=== PATIENT | male | born 1975 | race Caucasian/White ===

== ENCOUNTER 2018-05-10 15:27 | Observation (INO) | payer SELFPAY ==
--- OUTSIDE RECORDS SUMMARY | 2018-05-10 15:40 | XMS REPORT ---
:1975 [facility] Address [address] [place] [address] Dr. Lopez [address] [place] [address] Care Team Providers Name Role Phone DR FRIEDA FUENTES Unavailable Unavailable Problems This patient has no known problems. Allergies, Adverse Reactions, Alerts This patient has no known allergies or adverse reactions. Medications This patient has no known medications. Results Test Description Test Time Test Comments Text Results Atomic Results Result Comments GLUCOMETER GLUCOSE- LAB USE ONLY 2017-04-22 16:00:00 Test Item Value Reference Range Comments GLUCOMETER (test code=GMG) 299 mg/dL 70-100 Meter ID: [id number]: [id number] ILANA UBAY-UBAY GLUCOMETER GLUCOSE- LAB USE [id number] 11:15:00 Test Item Value Reference Range Comments GLUCOMETER (test code=GMG) 323 mg/dL 70-100 CLEANED METERMeter ID: [id number]: [id number] RAGINI WEEKS BASIC METABOLIC [id number] 06:19:00 Test Item Value Reference Range Comments GLUCOSE (test code=06D) 268 mg/dL 75-100 SODIUM (test code=01A) 135 mmol/L 136-145 POTASSIUM (test code=01B) 4.4 mmol/L 3.6-5.1 CHLORIDE (test code=04A) 104 mmol/L 98-107 CO2 (test code=02A) 23 mmol/L 22-32 ANION GAP (test code=ANG) 12.4 mmol/L BUN (test code=05D) 8 mg/dL 7-18 CREATININE (test code=03E) 0.6 mg/dL 0.7-1.3 BUN/CREA (test code=BCR) 15 12-20 CALCIUM (test code=09D) 7.1 mg/dL 8.3-9.5 LIPID [id number] 06:04:00 Test Item Value Reference Range Comments CHOLESTROL (test code=44A) 306 mg/dL 140-200 TRIGLYCERI (test code=42B) 1904 mg/dL <=149 HDL (test code=83D) 31.0 mg/dL 40.0-60.0 LDL (test code=34B) 68 mg/dL <=99 CHL/HDL (test code=CHR) 9.9 0.0-3.4 CBC (INCLUDES AUTOMATED DIFFERENTIAL)2017-04-22 05:40:00 Test Item Value Reference Range Comments WBC (test code=WBC) 4.7 10\S\3/uL 4.5-11.0 RBC (test code=RBC) 4.32 10\S\6/uL 4.30-5.70 HGB (test code=HBG) 13.1 g/dL 14.0-18.0 HCT (test code=HCT) 37.8 % 35.0-46.0 MCV (test code=MCV) 87.5 fL 80.0-94.0 MCH (test code=MCH) 30.3 pg 27.0-31.0 MCHC (test code=MCHC) 34.7 g/dL 32.0-36.0 RDW (test code=RDW) 14.3 % 11.5-14.5 PLT (test code=PLT) 161 10\S\3/uL 130-400 MPV (test code=MPV) 9.8 fL 9.4-12.4 NEUTROP # (test code=NE#) 2.8 10\S\3/uL 2.0-8.0 LYMPH # (test code=LY#) 1.5 10\S\3/uL 1.2-4.0 MONOCYTE # (test code=MO#) 0.4 10\S\3/uL 0.0-1.1 EOSINOPH # (test code=EO#) 0.1 10\S\3/uL 0.0-0.7 BASOPHIL # (test code=BA#) 0.0 10\S\3/uL 0.0-0.3 IG # (test code=IG#) 0.01 10\S\3/uL 0.00-0.06 NRBC # (test code=NRBC#) 0.00 10\S\3/uL 0.00-0.01 NEUTROPH % (test code=NE%) 59.8 % 35.0-73.0 LYMPH % (test code=LY%) 30.7 % 20.0-55.0 MONO % (test code=MO%) 7.6 % 2.5-10.0 EOSINOPH % (test code=EO%) 1.3 % 0.0-5.0 BASOPHIL % (test code=BA%) 0.4 % 0.0-2.0 IG % (test code=IG%) 0.2 % 0.0-0.8 NRBC% (test code=NRBC%) 0.0 % 0.0-0.2 MANDIFF (test code=MDIFF) NO NO RBC MORPH (test code=RBCMOR) NORMAL GLUCOMETER GLUCOSE- LAB USE [id number] 20:37:00 Test Item Value Reference Range Comments GLUCOMETER (test code=GMG) 174 mg/dL 70-100 Meter ID: [id number]: [id number] BIENVENIDOLUIS DANIEL MCKENZIE GLUCOMETER GLUCOSE- LAB USE [id number] 16:56:00 Test Item Value Reference Range Comments GLUCOMETER (test code=GMG) 212 mg/dL 70-100 CLEANED METERMeter ID: [id number]: [id number] BRANDAN IVANA XR CHEST 1 VIEW [id number] 15:16:21Portable AP chest, 1 viewLocation Code: [id number] HISTORY: Respiratory distressCOMPARISON: NoneCOMMENT: The lungs are clear and well inflated. The costophrenic angles are sharp. Thecardiomediastinal silhouette is unremarkable. The bones are intact.IMPRESSION : No acute abnormalityCBC (INCLUDES AUTOMATED DIFFERENTIAL)2017-04-21 14:26:00 Test Item Value Reference Range Comments WBC (test code=WBC) 8.3 10\S\3/uL 4.5-11.0 RBC (test code=RBC) 4.49 10\S\6/uL 4.30-5.70 HGB (test code=HBG) 14.3 g/dL 14.0-18.0 HCT (test code=HCT) 38.8 % 35.0-46.0 MCV (test code=MCV) 86.4 fL 80.0-94.0 MCH (test code=MCH) 31.8 pg 27.0-31.0 MCHC (test code=MCHC) 36.9 g/dL 32.0-36.0 RDW (test code=RDW) 14.3 % 11.5-14.5 PLT (test code=PLT) 194 10\S\3/uL 130-400 MPV (test code=MPV) 10.2 fL 9.4-12.4 NEUTROP # (test code=NE#) 6.5 10\S\3/uL 2.0-8.0 LYMPH # (test code=LY#) 1.0 10\S\3/uL 1.2-4.0 MONOCYTE # (test code=MO#) 0.7 10\S\3/uL 0.0-1.1 EOSINOPH # (test code=EO#) 0.0 10\S\3/uL 0.0-0.7 BASOPHIL # (test code=BA#) 0.0 10\S\3/uL 0.0-0.3 IG # (test code=IG#) 0.02 10\S\3/uL 0.00-0.06 NRBC # (test code=NRBC#) 0.00 10\S\3/uL 0.00-0.01 NEUTROPH % (test code=NE%) 78.1 % 35.0-73.0 LYMPH % (test code=LY%) 12.2 % 20.0-55.0 MONO % (test code=MO%) 8.9 % 2.5-10.0 EOSINOPH % (test code=EO%) 0.4 % 0.0-5.0 BASOPHIL % (test code=BA%) 0.2 % 0.0-2.0 IG % (test code=IG%) 0.2 % 0.0-0.8 NRBC% (test code=NRBC%) 0.0 % 0.0-0.2 MANDIFF (test code=MDIFF) NO NO RBC MORPH (test code=RBCMOR) NORMAL
[2018-05-10 16:02] LABS: Absolute Lymphocytes (CBC) 1.7 K/uL (0.7-4.9); Absolute Monocytes 0.4 K/uL (0.1-1.3); Absolute Neutrophil 4.7 K/uL (1.8-8.0); Basophils % 0.5 % (0-1.3); Eosinophils % 1.6 % (0-4.4); Hematocrit 40.7 % (39.6-49.0); Lymphocytes % 24.5 % (15.3-44.8); MCH 31.8 pg (27.0-35.0); MCV 88.5 fL (80-100); MPV 7.9 fL (7.6-11.3); Monocytes % 5.3 % (3.3-12.3)
--- NOTE | 2018-05-10 16:17 | RAD REPORT ---
EXAM DESCRIPTION: RAD - Chest Single View - 05/10/2018 4:00 pm CLINICAL HISTORY: CHEST PAIN Chest pain. COMPARISON: Chest Single View dated 06/22/2017; Chest Single View dated 12/28/2016; Chest Pa And Lat ( 2 Views) dated 12/16/2016; Chest Single View dated 11/17/2016 FINDINGS: Portable technique limits examination quality. The lungs are grossly clear. The heart is normal in size. No displaced fractures. IMPRESSION: No acute intrathoracic process suspected.
[2018-05-10 16:18] LABS: Protime INR 0.92
[2018-05-10 16:24] LABS: ALT/SGPT 30 U/L (12-78); AST/SGOT 16 U/L (15-37); Alkaline Phosphatase 125 U/L (45-117); BUN Blood Urea Nitrogen 10 mg/dL (7-18); Bicarbonate 23 mmol/L (21-32); Bilirubin Direct < 0.1 mg/dL (0-0.2); Bilirubin Total 0.4 mg/dL (0.2-1.0); CKMB Creatine Kinase MB < 1.0 ng/mL (0.3-3.6); Creatine Phosphokinase 45 U/L (39-308); Glucose Level 368 mg/dL (74-106); Magnesium 1.8 mg/dL (1.8-2.4); NT PRO-BNP 89 pg/mL (<125); Potassium 3.9 mmol/L (3.5-5.1); Protein, Total 6.2 g/dL (6.4-8.2); Sodium Level 135 mmol/L (136-145)
[2018-05-10] MEDS ORDERED: MORPHINE 4 MG/ML SYR ONE (16:36)
[2018-05-10] MEDS ORDERED: ONDANSETRON 4 MG/2 ML VIAL ONE (16:37)
--- NOTE | 2018-05-10 16:56 | RAD REPORT ---
EXAM DESCRIPTION: CT - Abdomen Pelvis Wo Contrast - 05/10/2018 4:46 pm CLINICAL HISTORY: Abdominal pain. ABD PAIN COMPARISON: Abdomen Pelvis Wo Contrast dated 07/09/2017 TECHNIQUE: CT imaging of the abdomen and pelvis was performed without contrast. Solid organ, bowel a nd vascular assessment is limited due to lack of IV and oral contrast. All CT scans are performed using dose optimization technique as appropriate and may include automated exposure control or mA/KV adjustment according to patient size. FINDINGS: The lower lung heredia are clear.Cholecystectomy clips. The liver, spleen, pancreas, adrenal glands and right kidney are within normal limits for a limited n on-contrast examination.Punctate stone is present in the left kidney without hydronephrosis. No bowel obstruction, free air, free fluid or abscess. Sigmoid diverticulosis coli is present without diverticulitis. The appendix is normal. The osseous structures are within normal limits. IMPRESSION: Punctate stone mid left kidney without hydronephrosis. Sigmoid diverticulosis coli without diverticulitis. A limited non-contrast examination was performed as detailed.
[2018-05-10] MEDS ORDERED: HYDROMORPHONE HCL 1 MG/ML INJ ONE (17:35)
[2018-05-10] MEDS ORDERED: NA CHLORIDE 0.9% 100 ML IV ONE (17:35)
[2018-05-10 17:45] LABS: Amylase Level 19 U/L (25-115); Lipase 116 U/L (73-393)
[2018-05-10] MEDS ORDERED: IPRATROPIUM BROM 0.5MG/2.5ML NEB PRN (17:51)
[2018-05-10] MEDS ORDERED: ALBUTEROL 2.5 MG/3 ML NEB SOL NEB PRN (17:51)
[2018-05-10] MEDS ORDERED: GLUCAGON 1 MG/VIAL IM PRN (17:51)
[2018-05-10] MEDS ORDERED: D50W 25 GM/50 ML SYRINGE IV PRN (17:51)
[2018-05-10] MEDS ORDERED: ACETAMINOPHEN 500 MG TAB PO PRN (17:51)
[2018-05-10] MEDS ORDERED: ALPRAZOLAM 0.25 MG TABLET PO PRN (17:51)
[2018-05-10] MEDS ORDERED: TRAMADOL HCL 50 MG TAB PO PRN (17:51)
[2018-05-10] MEDS ORDERED: ONDANSETRON 4 MG/2 ML VIAL IV PRN (17:51)
--- NOTE | 2018-05-10 18:05 | P.HP ---
Certification for Inpatient Patient admitted to: Observation With expected LOS: <2 Midnights Patient will require the following post-hospital care: None Practitioner: I am a practitioner with admitting privileges, knowledge of patient current condition, hospital course, and medical plan of care. Services: Services provided to patient in accordance with Admission requirements found in Title 42 Section 412.3 of the Code of Federal Regulations Patient History Date of Service: 05/10/18 Primary Care Provider: Dr. Escobar Reason for admission: Chest pain History of Present Illness: 42-year-old male presented to emergency room with chest pain. Patient reports chest pain to the left side. He has been having chest pain off and on over the past week. Pain would radiate to the back to the scapular region. It was associated with some nausea and shortness of breath. Last year in June he had a heart catheterization showing normal coronaries. He subsequently was admitted around that same time for pancreatitis related to hypertriglyceridemia. Patient reports history of diabetes, hypertriglyceridemia , obstructive sleep apnea, tobacco abuse. He reports compliance with his medication. The ER patient was evaluated. Initial blood pressure 132/87. CBC unremarkable. Sodium 135, potassium 3.9, initial cardiac enzymes unremarkable. Glucose 368. AST and ALT within normal range. Amylase and lipase also within normal range. CT abdomen showed no pancreatitis. A punctate left renal stone was noted without any hydronephrosis. Chest x-ray unremarkable. Due to nature the symptoms the patient was admitted for observation. When I saw the patient ER, he appeared comfortable. Patient still smokes regularly. Patient reports compliance with Lantus, Crestor, fenofibrate and gemfibrozil. Allergies adhesive tape Allergy (Verified 07/10/17 06:08) Itching Iodinated Contrast- Oral and IV Dye [Iodinated Contrast Media - IV Dye] Allergy (Verified 07/10/17 06:08) Anaphylaxis Penicillins Allergy (Verified 07/10/17 06:08) Anaphylaxis venom-wasp [wasp venom] Allergy (Verified 07/10/17 06:08) Anaphylaxis ketorolac tromethamine [From Toradol] Adverse Reaction (Verified 07/10/17 06:08) Agitation tramadol Adverse Reaction (Verified 07/10/17 06:08) aggitation adhesive tape-kristi Allergy (Uncoded 08/25/17 16:46) Unknown Home medications list reviewed: Yes Home Medications: Insulin Aspart [Novolog*] See Protocol SQ ACHS 12/28/16 Insulin Glargine Human [Lantus*] 40 units SQ BID 12/28/16 Rosuvastatin [Crestor*] 40 mg PO DAILY 06/23/17 Gemfibrozil [Lopid*] 1,000 mg PO DAILY 07/10/17 - Past Medical/Surgical History Diabetic: Yes -: Obstructive sleep apnea -: Diabetes mellitus type 2 -: Chronic recurrent hypertriglyceridemia pancreatitis -: Obesity -: Nonobstructing renal calculus, left side -: Cholecystectomy Psychosocial/ Personal History: He is but has a girlfriend. Has 1 child. He reports working in the [employer] industry - Family History Mother -: Diabetes Father -: Diabetes Notes: pancreatitis - Social History Smoking Status: Heavy Tobacco smoker (>10 cigarettes/day) Counseled patient to stop smoking for: less than 10 minutes Smoking therapy provided: Yes Patient receptive to therapy: Yes Alcohol use: No CD- Drugs: No Caffeine use: Yes Place of Residence: Home Review of Systems General: As per HPI Eyes: Unremarkable ENT: Unremarkable Respiratory: Shortness of Breath, As per HPI Cardiovascular: Chest Pain, As per HPI Gastrointestinal: Nausea, As per HPI Genitourinary: Unremarkable Musculoskeletal: Back Pain, As per HPI Integumentary: Unremarkable Neurological: Unremarkable Lymphatics: Unremarkable Physical Examination - Physical Exam General: Alert, In no apparent distress, Oriented x3, Cooperative HEENT: Atraumatic, Normocephalic, PERRLA, Mucous membr. moist/pink Neck: Supple, No Thyromegaly Respiratory: Clear to auscultation bilaterally, Normal air movement Cardiovascular: Normal pulses, Regular rate/rhythm Gastrointestinal: Normal bowel sounds, Soft and benign, Non-distended, No ascites, No tenderness, No masses, No rebound, No guarding Musculoskeletal: No erythema, No tenderness, No warmth Integumentary: No tenderness/swelling, No erythema, No warmth, No cyanosis Neurological: Normal speech, Normal strength at 5/5 x4 extr, Normal tone, Normal affect - Studies Laboratory Data (last 24 hrs) 05/10/18 15:45: Amylase 19 L, Lipase 116 05/10/18 15:45: PT 10.9, INR 0.92, APTT 31.9 05/10/18 15:45: WBC 6.8, Hgb 14.6, Hct 40.7, Plt Count 186 05/10/18 15:45: Sodium 135 L, Potassium 3.9, BUN 10, Creatinine 0.70, Glucose 368 H, Magnesium 1.8, Total Bilirubin 0.4, AST 16, ALT 30, Alkaline Phosphatase 125 H Assessment and Plan - Problems (Diagnosis) (1) Chest pain Onset Date: 06/23/17 Current Visit: No Status: Acute Plan: Will continue monitor patient with cardiac enzymes. Cardiology consulted to further assess. Will check echocardiogram. Previous heart catheterization done last year in June of 2017 showed normal coronaries. Await further recommendations from cardiology. Anticipate discharge tomorrow. Qualifiers: Chest pain type: unspecified Qualified Code(s): R07.9 - Chest pain, unspecified (2) Hyperlipidemia Onset Date: 12/29/16 Current Visit: No Status: Chronic Plan: Patient with history of mixed hyperlipidemia including hypertriglyceridemia. Will continue with Crestor and fenofibrate. Will check fasting lipid panel. Qualifiers: Hyperlipidemia type: mixed hyperlipidemia (3) GERD (gastroesophageal reflux disease) Onset Date: 12/16/16 Current Visit: No Status: Chronic Plan: Will provide PPI. Qualifiers: (4) Diabetes mellitus Onset Date: 04/25/16 Current Visit: No Status: Chronic Plan: Will check A1c. Will provide sliding scale. Will also provide basal insulin. Qualifiers: Diabetes mellitus type: type 2 Diabetes mellitus fci insulin use: with fci use Diabetes mellitus complication status: with other specified complication Qualified Code(s): E11.69 - Type 2 diabetes mellitus with other specified complication; Z79.4 - [facility] (current) use of insulin (5) Obstructive sleep apnea Onset Date: 04/25/16 Current Visit: No Status: Chronic Plan: Patient will need to be further assessed as an outpatient. (6) Tobacco abuse Onset Date: 04/25/16 Current Visit: No Status: Chronic Plan: Will provide nicotine patch. Will check urine drug screen. Discharge Plan: Home Plan to discharge in: 24 Hours - Advance Directives Does patient have a Living Will: No Does patient have a Durable POA for Healthcare: No - Code Status/Comfort Care Code Status Assessed: Yes Time Spent Managing Pts Care (In Minutes): 55
--- NOTE | 2018-05-10 18:07 | EDPHYS ---
Physician Documentation [facility] Name: Nehemias Shearer Age: 42 yrs Sex: Male : 1975 Arrival Date: 05/10/2018 Time: 15:28 Bed 16 Private MD: Ned Escobar ED Physician Neville Han HPI: 05/10 18:48 This 42 yrs old Male presents to ER via Wheelchair with complaints of Chest kdr Pain. 18:48 The patient or guardian reports chest pain that is located primarily in the substernal kdr area, epigastric area, anterior chest wall, left. Onset: this morning. The pain radiates to the left scapula, The scapular pain has been ongoing for months but worse today with the Chest pain and now similar to when he had his prior angioplasty by Dr. coppola. Associated signs and symptoms: Pertinent positives: abdominal pain, diaphoresis, nausea, shortness of breath, Pertinent negatives: dizziness, headache, lower extremity pain, lower extremity swelling, lightheadedness, near syncope, palpitations, recent travel, syncope, vomiting. The chest pain is described as aching, burning, a heaviness, a pressure. Duration: The patient or guardian reports a single episode, that is still ongoing, and unchanged. Modifying factors: The symptoms are alleviated by nothing. the symptoms are aggravated by nothing. Severity of pain: At its worst the pain was moderate severe just prior to arrival, in the emergency department the pain is unchanged. The patient has experienced similar episodes in the past, several times. Historical: - Allergies: 15:34 adhesive tape-silicones; tw2 15:34 Iodinated Contrast Media - IV Dye; tw2 15:34 Ketorolac; tw2 15:34 tramadol; tw2 15:34 venom-wasp; tw2 15:34 PENICILLINS; tw2 - Home Meds: 15:34 Novolog 100 unit/mL Sub-Q soln sliding scale [Active]; Crestor Oral [Active]; Lantus tw2 100 unit/mL Sub-Q soln 40 units BID [Active]; 15:35 fenofibrate oral oral [Active]; sv - PMHx: 15:34 Atrial Fib; Depression; Diabetes - IDDM; High Cholesterol; Pancreatitis; tw2 - PSHx: 15:35 Cholecystectomy; Angioplasty; sv - Immunization history:: Adult Immunizations up to date. - Social history:: Smoking status: Patient uses tobacco products, smokes one pack cigarettes per day. - Ebola Screening: : Patient denies travel to an Ebola-affected area in the 21 days before illness onset. ROS: 18:48 Constitutional: Negative for fever, chills, and weight loss, Eyes: Negative for injury, kdr pain, redness, and discharge, ENT: Negative for injury, pain, and discharge, Neck: Negative for injury, pain, and swelling, Respiratory: Negative for shortness of breath, cough, wheezing, and pleuritic chest pain, Abdomen/GI: Negative for abdominal pain, nausea, vomiting, diarrhea, and constipation, Back: Negative for injury and pain, : Negative for injury, bleeding, discharge, and swelling, MS/Extremity: Negative for injury and deformity, Skin: Negative for injury, rash, and discoloration, Neuro: Negative for headache, weakness, numbness, tingling, and seizure activity. Psych: Negative for depression, anxiety, suicide ideation, homicidal ideation, and hallucinations, Allergy/Immunology: Negative for hives, rash, and allergies, Endocrine: Negative for neck swelling, polydipsia, polyuria, polyphagia, and marked weight changes, Hematologic/Lymphatic: Negative for swollen nodes, abnormal bleeding, and unusual bruising. 18:48 Cardiovascular: Positive for chest pain, Negative for edema, orthopnea, palpitations, paroxysmal nocturnal dyspnea. 18:48 Abdomen/GI: Positive for abdominal pain, nausea, Negative for constipation, abdominal cramps, abdominal distension, anorexia, dysphagia, hematemesis, black/tarry stool, rectal pain, rectal bleeding, bowel incontinence. Exam: 18:48 Constitutional: This is a well developed, well nourished patient who is awake, alert, kdr and in no acute distress. Head/Face: Normocephalic, atraumatic. Eyes: Pupils equal round and reactive to light, extra-ocular motions intact. Lids and lashes normal. Conjunctiva and sclera are non-icteric and not injected. Cornea within normal limits. Periorbital areas with no swelling, redness, or edema. Neck: Trachea midline, no thyromegaly or masses palpated, and no cervical lymphadenopathy. Supple, full range of motion without nuchal rigidity, or vertebral point tenderness. No Meningismus. Chest/axilla: Normal chest wall appearance and motion. Nontender with no deformity. No lesions are appreciated. Cardiovascular: Regular rate and rhythm with a normal S1 and S2. No gallops, murmurs, or rubs. Normal PMI, no JVD. No pulse deficits. Respiratory: Lungs have equal breath sounds bilaterally, clear to auscultation and percussion. No rales, rhonchi or wheezes noted. No increased work of breathing, no retractions or nasal flaring. Abdomen/GI: Soft, non-tender, with normal bowel sounds. No distension or tympany. No guarding or rebound. No evidence of tenderness throughout. Back: No spinal tenderness. No costovertebral tenderness. Full range of motion. Skin: Warm, dry with normal turgor. Normal color with no rashes, no lesions, and no evidence of cellulitis. MS/ Extremity: Pulses equal, no cyanosis. Neurovascular intact. Full, normal range of motion. Neuro: Awake and alert, GCS 15, oriented to person, place, time, and situation. Cranial nerves II-XII grossly intact. Motor strength 5/5 in all extremities. Sensory grossly intact. Cerebellar exam normal. Normal gait. Psych: Awake, alert, with orientation to person, place and time. Behavior, mood, and affect are within normal limits. Vital Signs: 15:35 Weight 97.52 kg; Height 6 ft. 0 in. (182.88 cm); Pain 6/10; sv 15:35 BP 135 / 85; Pulse 105; Resp 17; Temp 98.9(O); Pulse Ox 98% on R/A; tw2 15:57 BP 135 / 80; Pulse 98; Resp 17; Pulse Ox 96% ; tw2 16:11 BP 112 / 59; Pulse 103; Resp 19; Pulse Ox 96% on R/A; tw2 17:22 BP 133 / 85; Pulse 99; Resp 18; Pulse Ox 97% on R/A; kr2 19:00 BP 127 / 96; Pulse 89; Resp 16; Pulse Ox 96% on R/A; aa1 20:11 BP 129 / 93; Pulse 84; Resp 16; Pulse Ox 98% on R/A; aa1 15:35 Body Mass Index 29.16 (97.52 kg, 182.88 cm) sv MDM: 18:07 Patient medically screened. kdr 18:48 Data reviewed: vital signs, lab test result(s), EKG, radiologic studies. kdr 08 15:47 Order name: Basic Metabolic Panel; Complete Time: 16:32 kdr 08/ 15:47 Order name: CBC with Diff; Complete Time: 16:32 kdr 08 15:47 Order name: Ckmb; Complete Time: 16:32 kdr 08 15:47 Order name: CPK; Complete Time: 16:32 kdr 05/10 15:47 Order name: LFT's; Complete Time: 16:32 kdr 05/10 15:47 Order name: Magnesium; Complete Time: 16:32 kdr 05/10 15:47 Order name: NT PRO-BNP; Complete Time: 16:32 kdr 05/10 15:47 Order name: PT-INR; Complete Time: 16:32 kdr 05/10 15:47 Order name: Ptt, Activated; Complete Time: 16:32 kdr 05/10 15:47 Order name: Troponin (emerg Dept Use Only); Complete Time: 16:32 kdr 05/10 17:31 Order name: Lipase; Complete Time: 18:06 kdr 05/10 17:31 Order name: Amylase, Serum; Complete Time: 18:06 kdr 05/10 17:45 Order name: Lipid Profile EDMN 05/10 17:58 Order name: Urine Drug Screen EDMN 05/10 15:36 Order name: EKG; Complete Time: 15:36 sv 05/10 15:36 Order name: EKG - Nurse/Tech; Complete Time: 15:40 sv 05/10 15:47 Order name: XRAY Chest (1 view); Complete Time: 16:32 kdr 05/10 15:47 Order name: Cardiac monitoring; Complete Time: 15:55 kdr 05/10 15:47 Order name: IV Saline Lock; Complete Time: 15:55 kdr 05/10 15:47 Order name: Labs collected and sent; Complete Time: 15:55 kdr 05/10 16:35 Order name: CT Abd/Pelvis - Without Cont; Complete Time: 17:17 kdr 05/10 17:58 Order name: CONS Physician Consult EDMN 05/10 17:58 Order name: Echo with Doppler EDMN 05/10 17:58 Order name: CKMB Creatine Kinase MB EDMN 05/10 17:58 Order name: Creatine Phosphokinase EDMN 05/10 17:58 Order name: Troponin I EDMN 05/10 20:30 Order name: Urine Dipstick--Ancillary (enter results) 2 05/10 15:47 Order name: O2 Per Protocol; Complete Time: 15:55 kdr 05/10 15:47 Order name: O2 Sat Monitoring; Complete Time: 15:56 kdr Administered Medications: 16:37 Drug: morphine 4 mg Route: IVP; Site: left forearm; kr2 17:00 Follow up: Response: No adverse reaction; Pain is decreased kr2 16:37 Drug: Zofran 4 mg Route: IVP; Site: left forearm; kr2 18:00 Follow up: Response: No adverse reaction kr2 17:36 Drug: Dilaudid 1 mg Route: IVP; Site: left forearm; kr2 19:15 Follow up: Response: No adverse reaction; Pain is decreased aa1 Disposition: 05/10/18 18:07 Hospitalization ordered by Rangel Cadena for Observation. Preliminary diagnosis is Chest pain, unspecified. - Bed requested for Telemetry/MedSurg (observation). - Status is Observation. aa1 - Condition is Fair. - Problem is an acute exacerbation. - Symptoms have improved. UTI on Admission? No Signatures: Dispatcher [employer] [facility] Orin Leblanc RN RN sv Caremn Gilbert RN RN aa1 Neville Han MD MD kdr Yomaira Carmona RN RN tw2 Maureen Haque RN RN kr2 Lynda Neely Corrections: (The following items were deleted from the chart) 18:56 18:07 Hospitalization Ordered by Rangel Cadena DO for Observation. Preliminary eb diagnosis is Chest pain, unspecified. Bed requested for Telemetry/MedSurg (observation). Status is Observation. Condition is Fair. Problem is an acute exacerbation. Symptoms have improved. UTI on Admission? No. kdr 20:31 18:56 05/10/2018 18:07 Hospitalization Ordered by Rangel Cadena DO for Observation. aa1 Preliminary diagnosis is Chest pain, unspecified. Bed requested for Telemetry/MedSurg (observation). Status is Observation. Condition is Fair. Problem is an acute exacerbation. Symptoms have improved. UTI on Admission? No. eb
--- NOTE | 2018-05-10 18:07 | ER ---
Nurse's Notes [facility] Name: Nehemias Shearer Age: 42 yrs Sex: Male : 1975 Arrival Date: 05/10/2018 Time: 15:28 Bed 16 Private MD: Ned Escobar Diagnosis: Chest pain, unspecified Presentation: 05/10 15:31 Presenting complaint: Patient states: left shoulder pain that started 2 days ago and sv pain has progressed to his left chest wall that is stabbing. c/o SOB and dizziness. Transition of care: patient was not received from another setting of care. Onset of symptoms was May 08, 2018. Care prior to arrival: None. 15:31 Method Of Arrival: Wheelchair sv 15:31 Acuity: GERALD 3 sv 15:34 Transition of care: patient was not received from another setting of care. Onset of tw2 symptoms was May 10, 2018. Risk Assessment: Do you want to hurt yourself or someone else? Patient reports no desire to harm self or others. Initial Sepsis Screen: Does the patient meet any 2 criteria? No. Patient's initial sepsis screen is negative. Does the patient have a suspected source of infection? No. Patient's initial sepsis screen is negative. Care prior to arrival: None. 15:34 Acuity: GERALD 3 tw2 15:34 Method Of Arrival: Wheelchair tw2 Triage Assessment: 15:39 General: Appears in no apparent distress. Pain: Complains of pain in chest. tw2 Historical: - Allergies: 15:34 adhesive tape-silicones; tw2 15:34 Iodinated Contrast Media - IV Dye; tw2 15:34 Ketorolac; tw2 15:34 tramadol; tw2 15:34 venom-wasp; tw2 15:34 PENICILLINS; tw2 - Home Meds: 15:34 Novolog 100 unit/mL Sub-Q soln sliding scale [Active]; Crestor Oral [Active]; Lantus tw2 100 unit/mL Sub-Q soln 40 units BID [Active]; 15:35 fenofibrate oral oral [Active]; sv - PMHx: 15:34 Atrial Fib; Depression; Diabetes - IDDM; High Cholesterol; Pancreatitis; tw2 - PSHx: 15:35 Cholecystectomy; Angioplasty; sv - Immunization history:: Adult Immunizations up to date. - Social history:: Smoking status: Patient uses tobacco products, smokes one pack cigarettes per day. - Ebola Screening: : Patient denies travel to an Ebola-affected area in the 21 days before illness onset. Screenin:32 Abuse screen: Denies threats or abuse. Nutritional screening: No deficits noted. tw2 Tuberculosis screening: No symptoms or risk factors identified. Fall Risk None identified. Assessment: 15:37 General: Appears in no apparent distress. Behavior is anxious. Neuro: Level of tw2 Consciousness is awake, alert, obeys commands, Oriented to person, place, time, situation. Cardiovascular: Reports chest pain, Heart tones S1 S2 Patient's skin is warm and dry. Rhythm is sinus tachycardia. Respiratory: Airway is patent Respiratory effort is even, unlabored, Respiratory pattern is regular, symmetrical, Breath sounds are clear bilaterally. GI: No signs and/or symptoms were reported involving the gastrointestinal system. Abdomen is round non-distended, Bowel sounds present X 4 quads. : No signs and/or symptoms were reported regarding the genitourinary system. EENT: No signs and/or symptoms were reported regarding the EENT system. Derm: No signs and/or symptoms reported regarding the dermatologic system. Skin is intact, is healthy with good turgor, Skin is dry, Skin temperature is warm. Musculoskeletal: Circulation, motion, and sensation intact. Range of motion: intact in all extremities. 15:39 Pain: Complains of pain in chest Pain radiates to left arm Pain began 2-3 days ago. tw2 16:11 Reassessment: Patient appears in no apparent distress at this time. No changes from tw2 previously documented assessment. Patient and/or family updated on plan of care and expected duration. Pain level reassessed. Patient is alert, oriented x 3, equal unlabored respirations, skin warm/dry/pink. 17:21 Reassessment: Patient appears in no apparent distress at this time. Patient and/or kr2 family updated on plan of care and expected duration. Pain level reassessed. Patient is alert, oriented x 3, equal unlabored respirations, skin warm/dry/pink. Patient states symptoms have improved. 20:10 Reassessment: Patient appears in no apparent distress at this time. Patient is alert, aa1 oriented x 3, equal unlabored respirations, skin warm/dry/pink. Report given to Phuong, RN on 2nd floor. Vital Signs: 15:35 Weight 97.52 kg; Height 6 ft. 0 in. (182.88 cm); Pain 6/10; sv 15:35 BP 135 / 85; Pulse 105; Resp 17; Temp 98.9(O); Pulse Ox 98% on R/A; tw2 15:57 BP 135 / 80; Pulse 98; Resp 17; Pulse Ox 96% ; tw2 16:11 BP 112 / 59; Pulse 103; Resp 19; Pulse Ox 96% on R/A; tw2 17:22 BP 133 / 85; Pulse 99; Resp 18; Pulse Ox 97% on R/A; kr2 19:00 BP 127 / 96; Pulse 89; Resp 16; Pulse Ox 96% on R/A; aa1 20:11 BP 129 / 93; Pulse 84; Resp 16; Pulse Ox 98% on R/A; aa1 15:35 Body Mass Index 29.16 (97.52 kg, 182.88 cm) sv ED Course: 15:28 Patient arrived in ED. es 15:29 Ned Escobar MD is Private Physician. es 15:31 Yomaira Carmona, CATRACHO is Primary Nurse. tw2 15:31 Placed in gown. Bed in low position. cardiac monitor on. Pulse ox on. NIBP on. tw2 15:31 Patient placed in an exam room, on a stretcher. sv 15:32 Arm band placed on. tw2 15:34 Triage completed. sv 15:35 Patient maintains SpO2 saturation greater than 95% on room air. tw2 15:43 EKG done, by technical support associate. reviewed by Gadiel Irene MD. sm3 15:45 Initial lab(s) drawn, by sd, held in ED. Inserted saline lock: 20 gauge in left mh5 antecubital area, using aseptic technique. Blood collected. 15:46 Neville Han MD is Attending Physician. kdr 15:55 sent to lab. 5 15:55 NT PRO-BNP Sent. 5 15:55 PT-INR Sent. 5 15:55 Ptt, Activated Sent. 5 15:55 Troponin (emerg Dept Use Only) Sent. 5 15:56 Magnesium Sent. 5 15:56 LFT's Sent. 5 15:56 CPK Sent. 5 15:56 Ckmb Sent. 5 15:56 CBC with Diff Sent. 5 15:56 Basic Metabolic Panel Sent. 5 15:59 X-ray completed. Portable x-ray completed in exam room. Patient tolerated procedure ml well. 16:00 XRAY Chest (1 view) In Process Unspecified. EDMS 16:24 Report given to CATRACHO Reddy. tw2 16:[address] jj2 16:46 CT Abd/Pelvis - Without Cont In Process Unspecified. EDMS 18:06 Rangel Cadena DO is Hospitalizing Provider. kdr 20:23 Urine collected: clean catch specimen, serenity colored. aa1 20:28 No provider procedures requiring assistance completed. Patient admitted, IV remains in aa1 place. Administered Medications: 16:37 Drug: morphine 4 mg Route: IVP; Site: left forearm; kr2 17:00 Follow up: Response: No adverse reaction; Pain is decreased kr2 16:37 Drug: Zofran 4 mg Route: IVP; Site: left forearm; kr2 18:00 Follow up: Response: No adverse reaction kr2 17:36 Drug: Dilaudid 1 mg Route: IVP; Site: left forearm; kr2 19:15 Follow up: Response: No adverse reaction; Pain is decreased aa1 Outcome: 18:07 Decision to Hospitalize by Provider. kdr 20:28 Admitted to Tele accompanied by tech, via wheelchair, room 212, with chart, Report aa1 called to CATRACHO Baca 20:28 Condition: stable 20:28 Discharge instructions given to patient, Instructed on the need for admit, Demonstrated understanding of instructions. 20:31 Patient left the ED. aa1 Signatures: Dispatcher [employer] Orin Carranza, Carmen Smith RN, RN RN aa1 Neville Han MD MD kdr Salyer, Edna es Jaramillo, Justin jj2 Madison Wylie Tara, RN RN 2 Sue Smyth [facility] Maureen Haque RN RN 2 Henna Moe 3
[2018-05-10] MEDS: ENOXAPARIN 40 MG/0.4 ML SQ SCH (19:00)
[2018-05-10] MEDS: NICOTINE 21 MG/PAT TD SCH (19:00)
[2018-05-10 20:35] LABS: Urine Blood NEGATIVE (NEG); Urine Glucose 2+ (NEG); Urine Protein NEGATIVE (NEG); Urine pH 6.5 (5.0-7.0)
[2018-05-10 20:45] LABS: Barbiturates NEGATIVE (NEGATIVE); Benzodiazepines NEGATIVE (NEGATIVE); Cocaine NEGATIVE (NEGATIVE); METHAMPHETAM NEGATIVE (NEGATIVE); Methadone NEGATIVE (NEGATIVE); Opiates POSITIVE (NEGATIVE); Phencyclidine NEGATIVE (NEGATIVE); THC Cannibis NEGATIVE (NEGATIVE)
[2018-05-10] MEDS ORDERED: ROSUVASTATIN 10 MG TAB PO SCH (21:00)
[2018-05-10] MEDS: INSULIN -REGULAR HUMAN 50 UNIT/0.5 ML ML SQ SCH (21:00)
[2018-05-10] MEDS: NA CHLORIDE 0.9% 1,000 ML IV SCH (21:17)
[2018-05-10] MEDS: HYDROCODONE/APAP 7.5/325 MG TAB PO PRN (21:18)
[2018-05-10 22:22] VITALS: BMI 29.2
[2018-05-10 22:32] LABS: CKMB Creatine Kinase MB < 1.0 ng/mL (0.3-3.6); Creatine Phosphokinase 44 U/L (39-308)
[2018-05-11] MEDS: HYDROCODONE/APAP 7.5/325 MG TAB PO PRN ×2 (04:34→14:43)
[2018-05-11 04:58] VITALS: O2SAT 99
[2018-05-11] MEDS: NA CHLORIDE 0.9% 1,000 ML IV SCH (05:49)
[2018-05-11 05:58] LABS: Absolute Lymphocytes (CBC) 1.5 K/uL (0.7-4.9); Absolute Monocytes 0.4 K/uL (0.1-1.3); Absolute Neutrophil 4.2 K/uL (1.8-8.0); Basophils % 0.3 % (0-1.3); Eosinophils % 1.9 % (0-4.4); Hematocrit 41.1 % (39.6-49.0); Lymphocytes % 23.7 % (15.3-44.8); MCH 31.6 pg (27.0-35.0); MCV 88.7 fL (80-100); MPV 7.8 fL (7.6-11.3); Monocytes % 6.7 % (3.3-12.3); RBC Red Blood Cell Count 4.63 M/uL (4.33-5.43)
[2018-05-11 06:49] LABS: ALT/SGPT 30 U/L (12-78); AST/SGOT 22 U/L (15-37); Albumin 2.7 g/dL (3.4-5.0); Alkaline Phosphatase 106 U/L (45-117); BUN Blood Urea Nitrogen 9 mg/dL (7-18); Bicarbonate 27 mmol/L (21-32); Bilirubin Total 0.4 mg/dL (0.2-1.0); CKMB Creatine Kinase MB < 1.0 ng/mL (0.3-3.6); Glucose Level 221 mg/dL (74-106); HDL Cholesterol 24 mg/dL (40-60); LDL Cholesterol, Calculated ND (<130); Magnesium 1.7 mg/dL (1.8-2.4); Protein, Total 5.8 g/dL (6.4-8.2); Sodium Level 138 mmol/L (136-145)
--- NOTE | 2018-05-11 06:49 | EKG ---
Test Date: 2018-05-10 Test Time: 15:36:14 Specialty Department Supervisor: JOHN MEASUREMENT RESULTS: Intervals: Rate: 102 PA: 134 QRSD: 96 QT: 348 QTc: 453 [place]: P: 50 PA: 134 QRS: 47 T: 58 INTERPRETIVE STATEMENTS: Sinus tachycardia Otherwise normal ECG Compared to ECG 06/22/2017 22:07:45 Sinus rhythm no longer present Atrial premature complex(es) no longer present Incomplete right bundle-branch block no longer present Electronically Signed On 05-11-18 06:48:16 CDT by Dayday Erazo
[2018-05-11 07:02] LABS: LDL, Direct 61 mg/dL (100-129)
[2018-05-11] MEDS ORDERED: PANTOPRAZOLE 40MG TABLET PO SCH (07:30)
[2018-05-11] MEDS: INSULIN -REGULAR HUMAN 50 UNIT/0.5 ML ML SQ SCH ×2 (07:30→11:30)
[2018-05-11] MEDS ORDERED: INSULIN DETEMIR 100 UNIT/1 ML INSULIN SQ SCH (08:00)
[2018-05-11] MEDS ORDERED: SODIUM CHLORIDE 0.9% 10ML INJ IV PRN (08:05)
[2018-05-11] MEDS ORDERED: MORPHINE 2 MG/ML SYR IV PRN (08:06)
[2018-05-11 08:30] LABS: Amylase Level 30 U/L (25-115); Lipase 258 U/L (73-393)
[2018-05-11] MEDS: ENOXAPARIN 40 MG/0.4 ML SQ SCH (09:00)
[2018-05-11] MEDS ORDERED: MAGNESIUM SULFATE 1 gm IVPB 1 GM/100 ML BAG IV ONE (09:00)
[2018-05-11] MEDS: NICOTINE 21 MG/PAT TD SCH (09:00)
[2018-05-11] MEDS ORDERED: FENOFIBRATE 160 MG TAB PO SCH (09:00)
[2018-05-11] MEDS ORDERED: GEMFIBROZIL 600 MG TAB PO SCH (09:00)
[2018-05-11] MEDS ORDERED: PANTOPRAZOLE 40 MG INJ IVP SCH (09:00)
--- NOTE | 2018-05-11 09:49 | P.DS ---
Admission Date: 05/10/18 Discharge Date: 05/11/18 Primary Care Provider: Dr. Escobar Disposition: ROUTINE DISCHARGE Discharge Condition: GOOD Reason for Admission: Chest pain Consultations: Cardiology-Dr. Erazo Procedures: CT scan: FINDINGS: The lower lung heredia are clear.Cholecystectomy clips. The liver, spleen, pancreas, adrenal glands and right kidney are within normal limits for a limited non-contrast examination. Punctate stone is present in the left kidney without hydronephrosis. No bowel obstruction, free air, free fluid or abscess. Sigmoid diverticulosis coli is present without diverticulitis. The appendix is normal. The osseous structures are within normal limits. IMPRESSION: Punctate stone mid left kidney without hydronephrosis. Sigmoid diverticulosis coli without diverticulitis. Echocardiogram: Ejection fraction 70%. Otherwise unremarkable. Cardiac stress test: COMPARISON: None. TECHNIQUE: The patient was administered approximately 10mCi of Tc 99m Sestamibi prior to resting SPECT imaging of the heart. The patient was then administered approximately 30 mCi of Tc 99m Sestamibi following exercise or pharmacologic stress. Multiplanar SPECT images were reviewed. FINDINGS: There is uniformity of radiotracer uptake involving the entire left ventricular myocardium. The left ventricular ejection fraction equals 52% IMPRESSION: Negative for a myocardial perfusion defect - Problems (1) Chest pain Onset Date: 06/23/17 Current Visit: No Status: Acute Qualifiers: Chest pain type: unspecified Qualified Code(s): R07.9 - Chest pain, unspecified (2) Hyperlipidemia Onset Date: 12/29/16 Current Visit: No Status: Chronic Qualifiers: Hyperlipidemia type: mixed hyperlipidemia Qualified Code(s): E78.2 - Mixed hyperlipidemia (3) GERD (gastroesophageal reflux disease) Onset Date: 12/16/16 Current Visit: No Status: Chronic Qualifiers: (4) Diabetes mellitus Onset Date: 04/25/16 Current Visit: No Status: Chronic Qualifiers: Diabetes mellitus type: type 2 Diabetes mellitus long lines operator insulin use: with long lines operator use Diabetes mellitus complication status: with other specified complication Qualified Code(s): E11.69 - Type 2 diabetes mellitus with other specified complication; Z79.4 - tank terminal gauger (current) use of insulin (5) Obstructive sleep apnea Onset Date: 04/25/16 Current Visit: No Status: Chronic (6) Tobacco abuse Onset Date: 04/25/16 Current Visit: No Status: Chronic (7) Renal calculus Current Visit: Yes Status: Chronic (8) Hypertriglyceridemia Onset Date: 11/18/16 Current Visit: No Status: Chronic (9) Flank pain Current Visit: Yes Status: Acute (10) Hypertension Current Visit: Yes Status: Chronic Qualifiers: Hypertension type: essential hypertension Qualified Code(s): I10 - Essential (primary) hypertension Brief History of Present Illness: 42-year-old male presented to emergency room with chest pain. Patient reports chest pain to the left side. He has been having chest pain off and on over the past week. Pain would radiate to the back to the scapular region. It was associated with some nausea and shortness of breath. Last year in June he had a heart catheterization showing normal coronaries. He subsequently was admitted around that same time for pancreatitis related to hypertriglyceridemia. Patient reports history of diabetes, hypertriglyceridemia , obstructive sleep apnea, tobacco abuse. He reports compliance with his medication. The ER patient was evaluated. Initial blood pressure 132/87. CBC unremarkable. Sodium 135, potassium 3.9, initial cardiac enzymes unremarkable. Glucose 368. AST and ALT within normal range. Amylase and lipase also within normal range. CT abdomen showed no pancreatitis. A punctate left renal stone was noted without any hydronephrosis. Chest x-ray unremarkable. Due to nature the symptoms the patient was admitted for observation. When I saw the patient ER, he appeared comfortable. Patient still smokes regularly. Patient reports compliance with Lantus, Crestor, fenofibrate and gemfibrozil. Hospital Course: During the course of his stay patient was evaluated for his chest pain recommended echocardiogram and cardiac stress test. Echo showed normal ejection fraction of 70%. Cardiac stress test showed no stress-induced ischemia. At discharge patient will continue with aspirin 81 mg daily. Patient also reported some left upper abdominal flank pain. CT scan showed no pancreatitis. Punctate left renal stone without hydronephrosis noted. This may be the source of his pain. Recommendation to increase fluid intake. Patient may benefit with urology evaluation as an outpatient. Patient has hypertriglyceridemia. Triglycerides were elevated at 1600. Patient has been seen in the past for pancreatitis secondary to hypertriglyceridemia. In the past triglycerides have been as high as 0704-1693. No pancreatitis is noted at this time. This was confirmed with CT scan and pancreatic levels. I did discuss treatment options with the patient along with Cardiology. At discharge, I will recommend the patient continue with Crestor 40 mg daily, fenofibrate 160 mg daily. Cardiology recommended Lovaza 2 gm 1 pill twice daily. Dietary changes will need to be enforced as an outpatient. Patient may have underlying GERD. At discharge patient will continue with Protonix 40 mg 1 pill daily. Patient may benefit with GI evaluation as an outpatient to further address. The patient has diabetes. Patient will continue with his insulin regimen of Lantus 40 units subcu twice daily. Patient also takes NovoLog sliding scale. Recommendation is to maintain blood sugars less 140 fasting and less than 200 after meals. Further adjustment can be done by his PCP. Recommendation to maintain A1c less than 7.0. This can be monitored by his PCP. The patient had slight elevation in his blood pressure. Patient likely has underlying hypertension. Because of his diabetes I will recommend to start lisinopril 2.5 mg daily. Recommendation is to maintain blood pressures less 150 /80. Further adjustment can be done by his PCP. He is to hold his blood pressure medication if blood pressure systolic less than 120. Tobacco cessation addressed in detail. This will need to be enforced as an outpatient. Vital Signs/Physical Exam: Temp Pulse Resp BP Pulse Ox 98.5 F 76 16 139/88 97 05/11/18 08:00 05/11/18 08:00 05/11/18 08:00 05/11/18 08:00 05/11/18 08:00 General: Alert, In no apparent distress, Oriented x3, Cooperative HEENT: Atraumatic Neck: Supple Respiratory: Clear to auscultation bilaterally, Normal air movement Cardiovascular: Normal pulses, Regular rate/rhythm Gastrointestinal: Normal bowel sounds, Soft and benign, Non-distended, No tenderness, No masses, No rebound, No guarding Musculoskeletal: No erythema, No tenderness, No warmth Integumentary: No tenderness/swelling, No erythema, No warmth, No cyanosis Neurological: Normal speech, Normal strength at 5/5 x4 extr, Normal tone, Normal affect Laboratory Data at Discharge: WBC 6.3 K/uL (4.3-10.9) 05/11/18 05:39 Hgb 14.6 g/dL (13.6-17.9) 05/11/18 05:39 Hct 41.1 % (39.6-49.0) 05/11/18 05:39 Plt Count 167 K/uL (152-406) 05/11/18 05:39 PT 10.9 SECONDS (9.5-12.5) 05/10/18 15:45 INR 0.92 05/10/18 15:45 APTT 31.9 SECONDS (24.3-36.9) 05/10/18 15:45 Sodium 138 mmol/L (136-145) 05/11/18 05:39 Potassium 4.0 mmol/L (3.5-5.1) 05/11/18 05:39 BUN 9 mg/dL (7-18) 05/11/18 05:39 Creatinine 0.60 mg/dL (0.55-1.3) 05/11/18 05:39 Glucose 221 mg/dL (74-106) H 05/11/18 05:39 Magnesium 1.7 mg/dL (1.8-2.4) L 05/11/18 05:39 Total Bilirubin 0.4 mg/dL (0.2-1.0) 05/11/18 05:39 AST 22 U/L (15-37) 05/11/18 05:39 ALT 30 U/L (12-78) 05/11/18 05:39 Alkaline Phosphatase 106 U/L (45-117) 05/11/18 05:39 Troponin I < 0.02 ng/mL (0.0-0.045) 05/11/18 05:39 Triglycerides 1611 mg/dL (<150) H 05/11/18 05:39 Cholesterol 257 mg/dL (<200) H 05/11/18 05:39 LDL Cholesterol Direct 61 mg/dL (100-129) L 05/11/18 05:39 HDL Cholesterol 24 mg/dL (40-60) L 05/11/18 05:39 Cholesterol/HDL Ratio 10.71 05/11/18 05:39 Amylase 30 U/L (25-115) 05/11/18 05:39 Lipase 258 U/L (73-393) 05/11/18 05:39 Home Medications: Insulin Aspart [Novolog*] See Protocol SQ ACHS 12/28/16 Insulin Glargine Human [Lantus*] 40 units SQ BID 12/28/16 Rosuvastatin [Crestor*] 40 mg PO DAILY 06/23/17 Fenofibrate [Tricor*] 160 mg PO DAILY 05/10/18 Docosahexanoic AC/Epa [Fish Oil 1,000 MG*] 2,000 mg PO BID #120 cap 05/11/18 Lisinopril [Prinivil*] 2.5 mg PO DAILY #30 tab 05/11/18 Pantoprazole [Protonix Tab] 40 mg PO DAILY #30 tab 05/11/18 New Medications: Docosahexanoic AC/Epa [Fish Oil 1,000 MG*] 2,000 mg PO BID #120 cap Lisinopril [Prinivil*] 2.5 mg PO DAILY #30 tab Pantoprazole [Protonix Tab] 40 mg PO DAILY #30 tab Patient Discharge Instructions: 1. Recommendation is for the patient follow up with PCP in 1 week to follow up this hospitalization. 2. Patient presented with chest pain. Patient seen and evaluated by Cardiology. Echo showed normal ejection fraction. Cardiac stress test showed no stress-induced ischemia. At discharge patient will continue with aspirin 81 mg daily. 3. Patient also reported some left upper abdominal flank pain. CT scan showed no pancreatitis. Punctate left renal stone without hydronephrosis noted. This may be the source of his pain. Recommendation to increase fluid intake. Patient may benefit with urology evaluation as an outpatient. 4. Patient has hypertriglyceridemia. Triglycerides were elevated at 1600. Patient has been seen in the past for pancreatitis secondary to hypertriglyceridemia. In the past triglycerides have been as high as 5305-0826. No pancreatitis is noted at this time. This was confirmed with CT scan and pancreatic levels. I did discuss treatment options with the patient along with Cardiology. At discharge, I will recommend the patient continue with Crestor 40 mg daily, fenofibrate 160 mg daily. Cardiology recommended Lovaza 2 gm 1 pill twice daily. Dietary changes will need to be enforced as an outpatient. 5. Patient may have underlying GERD. At discharge patient will continue with Protonix 40 mg 1 pill daily. Patient may benefit with GI evaluation as an outpatient to further address. 6. The patient has diabetes. Patient will continue with his insulin regimen of Lantus 40 units subcu twice daily. Patient also takes NovoLog sliding scale. Recommendation is to maintain blood sugars less 140 fasting and less than 200 after meals. Further adjustment can be done by his PCP. Recommendation to maintain A1c less than 7.0. This can be monitored by his PCP. 7. The patient had slight elevation in his blood pressure. Patient likely has underlying hypertension. Because of his diabetes I will recommend to start lisinopril 2.5 mg daily. Recommendation is to maintain blood pressures less 150/80. Further adjustment can be done by his PCP. He is to hold his blood pressure medication if blood pressure systolic less than 120. 8. Tobacco cessation addressed in detail. This will need to be enforced as an outpatient. Diet: ADA Activity: Ad anay Time spent managing pt's care (in minutes): 55
--- NOTE | 2018-05-11 10:15 | ECHO ---
HEIGHT: 6 ft 0 in WEIGHT: 215 lb 9.6 oz DATE OF STUDY: 05/11/[address]: Rangel Cadena DO 2-DIMENSIONAL: YES M.MODE: YES DOPPLER: YES COLOR FLOW: YES TDS: NO PORTABLE: NO DEFINITY: NO BUBBLE STUDY: NO DIAGNOSIS: CHEST PAIN/HISTORY OF CORONARY ARTERY DISEASE CARDIAC HISTORY: CATHERIZATION: YES SURGERY: NO PROSTHETIC VALVE: NO PACEMAKER: NO MEASUREMENTS (cm) DIASTOLIC (NORMALS) SYSTOLIC (NORMALS) IVSd 1.0 (0.6-1.2) LA Diam 3.4 (1.9-4.0) LVEF 70% LVIDd 4.6 (3.5-5.7) LVIDs 2.8 (2.0-3.5) %FS 39% LVPWd 1.1 (0.6-1.2) Ao Diam 3.3 (2.0-3.7) 2 DIMENSIONAL ASSESSMENT: RIGHT ATRIUM: NORMAL LEFT ATRIUM: NORMAL RIGHT VENTRICLE: NORMAL LEFT VENTRICLE: NORMAL TRICUSPID VALVE: NORMAL MITRAL VALVE: NORMAL PULMONIC VALVE: NORMAL AORTIC VALVE: NORMAL PERICARDIAL EFFUSION: NONE AORTIC ROOT: NORMAL LEFT VENTRICULAR WALL MOTION: NORMAL. DOPPLER/COLOR FLOW: NORMAL. COMMENTS: NORMAL 2D ECHO WITH DOPPLER. TECHNOLOGIST: FRAN SOSA
[2018-05-11 12:18] VITALS: BP 131/88; TEMP 97.5
--- NOTE | 2018-05-11 12:18 | CON ---
Chief Complaint: Chest pain. History Of Present Illness: Mr. Shearer started having pain in the left shoulder 2 days ago when he started having pain in the lower part of his chest, it is mostly resolved. It is constant. He has b een here in the hospital. Cardiac enzymes are all normal. In June 2017, a cardiac cath was kavya solis. The patient tells people he had an angioplasty without a stent that is not true. The patient had a cardiac cath that showed completely normal arteries and normal ejection fraction. Everything was normal in the cardiac cath. The patient has a problem that is very severe with high triglycerides. He does not take good care of himself. He continues to smoke. He does not eat carefully at all. Th e most recent triglycerides were 1611 and total cholesterol was 257, LDL was 61, and HDL was 24. Physical Examination: Vital Signs: Mr. Shearer is 6 feet tall, 215 pounds. General: Alert, oriented, pleasant, not in distress. Lungs: Clear. Heart: Normal. Abdomen: Soft. Extremities: Normal. Normal pulses. I would recommend he quit smoking, try very hard to follow a good diet. His outpatient medications o f gemfibrozil and Crestor and fenofibrate should probably be changed. He should not be on both gemfi brozil and fenofibrate, one or the other, and he should be on very highly concentrated EPA or other p reparations like this is known as Vascepa. That would probably get his triglycerides down into the n ormal range. He will have to follow an extremely strict diet, quit smoking to have a really good pro gnosis. Regarding his chest pain today, I will recommend we do a nuclear stress test. We will do a cardiac cath if it is abnormal. JOSE Voice ID: [id number] Report ID: [id number]
--- NOTE | 2018-05-11 13:14 | RAD REPORT ---
EXAM DESCRIPTION: NM - Rest Stress Cardiac Imaging - 05/11/2018 1:08 pm CLINICAL HISTORY: Chest pain. COMPARISON: None. TECHNIQUE: The patient was administered approximately 10mCi of Tc 99m Sestamibi prior to resting SPE CT imaging of the heart. The patient was then administered approximately 30 mCi of Tc 99m Sestamibi f ollowing exercise or pharmacologic stress. Multiplanar SPECT images were reviewed. FINDINGS: There is uniformity of radiotracer uptake involving the entire left ventricular myocardiu m. The left ventricular ejection fraction equals 52% IMPRESSION: Negative for a myocardial perfusion defect
--- NOTE | 2018-05-11 18:38 | TREADMILL ---
70% H.R.: 125 85% H.R.: 152 90% H.R.: 161 100% H.R.: 179 DX: CHEST PAIN Date of Study: 05/11/2018 Ht: 6 0 Wt: 215 lb 9.6 oz Consulting Physician: MARKY MEDICATIONS: TYLENOL, NORCO, PROVENTIE, DEXTROSE, LOVENOX, CRESTOR, ZOFRAN, TRICOR, FISH OIL, GLUCAGEN, NOVOLIN R, PRINIVIL, NICODERM, PROTONIX. HISTORY: 42 YEAR OLD MALE WITH CHEST PAIN. HISTORY: DIABETES MELLITUS, SMOKES ONE PACK PER DAY, HYPERLIPIDEMIA. PHYSICIAL EXAMINATION: RESTING B.P.: 133/86 RESTING H.R.: 91 RESTING EKG: NORMAL PROTOCOL: JESSE CARDIOLITE EXERCISE TIME: 10:30 MAXIMUM HEART RATE: 163 % OF PREDICTED B.P. AT PEAK STRESS: 193/97 H.R. AT 1 MINUTE POST EXERCISE: IMPRESSION: JESSE CARDIOLITE STOPPED DUE TO TARGET HEART RATE REACHED. CARDIOLITE INJECTED. COMPLAINTS OF CHEST PAIN 6/10 DURING EXERCISE. NO VENTRICULAR TACHYCARDIA. NO SUPRAVENTRICULAR TACHYCARDIA. NO ST CHANGES WITH STRESS TEST
[2018-05-11] MEDS ORDERED: DOCOSAHEXANOIC AC/EPA 1000 MG PO SCH (21:00)
[2018-05-12] MEDS ORDERED: LISINOPRIL 5 MG TAB PO SCH (09:00)
== END 2018-05-11 14:50 | disposition home or self-care (01) ==
LOC: ER 15:27 → ERHOLD 17:51 → 2ND 19:55
PROVIDERS: ADMIT Family Medicine; ATTEND Family Medicine
DX: R07.9 Chest pain, unspecified (principal); E78.2 Mixed hyperlipidemia; K21.9 Gastro-esophageal reflux disease without esophagitis; G47.33 Obstructive sleep apnea (adult) (pediatric); N20.0 Calculus of kidney; E78.1 Pure hyperglyceridemia; I10 Essential (primary) hypertension; F17.210 Nicotine dependence, cigarettes, uncomplicated; R10.9 Unspecified abdominal pain; E11.69 Type 2 diabetes mellitus with other specified complication; Z79.82 Long term (current) use of aspirin; Z79.4 Long term (current) use of insulin; Z88.6 Allergy status to analgesic agent; Z91.041 Radiographic dye allergy status; Z91.038 Other insect allergy status; Z88.5 Allergy status to narcotic agent; Z88.0 Allergy status to penicillin; Z91.048 Other nonmedicinal substance allergy status
CPT/HCPCS: 36415; 71045; 74176; 78452; 80048; 80053; 80061; 80076; 80307; 81003; 82150; 82550; 82553; 82962; 83690; 83735; 83880; 84484; 85025; 85610; 85730; 93005; 93017; 93306; 96374; 96375; 99285; A9500; C9113; G0378; J1170; J1650; J2270; J2405; J3475; J7030

== ENCOUNTER 2018-09-06 16:28 | Observation (INO) | payer SELFPAY ==
--- OUTSIDE RECORDS SUMMARY | 2018-09-06 16:31 | XMS REPORT ---
:1975 Author Organization [facility] Address [address] [place] [address] Dr. Lopez [address] [place] [address] Care Team Providers Name Role Phone DR [...] (test code=GMG) 299 mg/dL 70-100 Meter ID: [id number]: [id number] ILANA UBAY-UBAY GLUCOMETER GLUCOSE- LAB USE [id number] 11:15:00 Test Item Value Reference Range Comments GLUCOMETER (test code=GMG) 323 mg/dL 70-100 CLEANED METERMeter ID: [id number]: [id number] RAGINI WEEKS BASIC METABOLIC [id number] 06:19:00 Test Item Value Reference Range Comments [...] CALCIUM (test code=09D) 7.1 mg/dL 8.3-9.5 LIPID [id number] 06:04:00 Test Item Value Reference Range Comments [...] (test code=RBCMOR) NORMAL GLUCOMETER GLUCOSE- LAB USE [id number] 20:37:00 Test Item Value Reference Range Comments GLUCOMETER (test code=GMG) 174 mg/dL 70-100 Meter ID: [id number]: [id number] BIENVENIDOLUIS DANIEL MCKENZIE GLUCOMETER GLUCOSE- LAB USE [id number] 16:56:00 Test Item Value Reference Range Comments GLUCOMETER (test code=GMG) 212 mg/dL 70-100 CLEANED METERMeter ID: [id number]: [id number] BRANDAN IVANA XR CHEST 1 VIEW [id number] 15:16:21Portable AP chest, 1 viewLocation Code: [id number] HISTORY: Respiratory distressCOMPARISON: NoneCOMMENT: The lungs are [...]
[2018-09-06] MEDS ORDERED: HYDROMORPHONE HCL 1 MG/ML INJ ONE (18:20)
[2018-09-06] MEDS ORDERED: NA CHLORIDE 0.9% 2,000 ML ONE (18:20)
[2018-09-06] MEDS ORDERED: ONDANSETRON 4 MG/2 ML VIAL ONE (18:20)
[2018-09-06] MEDS ORDERED: FAMOTIDINE 20 MG/2 ML VIAL IV ONE (18:20)
--- NOTE | 2018-09-06 18:41 | ER ---
Nurse's Notes [facility] Name: Nehemias Shearer Age: 43 yrs Sex: Male : 1975 Arrival Date: 09/06/2018 Time: 16:30 Bed 26 Private MD: Archie Gloria Diagnosis: Abdominal tenderness;Vomiting;Other chronic pancreatitis-hx of;Hyperlipidemia, unspecified-triglyceridemia Presentation: 09/06 16:35 Presenting complaint: Patient states: LUQ pain that began "earlier today". Pt reports ss it feels like he is having pancreatitis again. Transition of care: patient was not received from another setting of care. Onset of symptoms was September 06, 2018. Risk Assessment: Do you want to hurt yourself or someone else? Patient reports no desire to harm self or others. Initial Sepsis Screen: Does the patient meet any 2 criteria? No. Patient's initial sepsis screen is negative. Does the patient have a suspected source of infection? No. Patient's initial sepsis screen is negative. Care prior to arrival: None. 16:35 Method Of Arrival: Ambulatory ss 16:35 Acuity: GERALD 3 ss Historical: - Allergies: 16:37 venom-wasp; ss 16:37 tramadol; ss 16:37 PENICILLINS; ss 16:37 Ketorolac; ss 16:37 Iodinated Contrast Media - IV Dye; ss 16:37 adhesive tape-silicones; ss - Home Meds: 20:57 Crestor Oral [Active]; fenofibrate Oral [Active]; Lantus 100 unit/mL Sub-Q soln 40 mg2 units BID [Active]; Novolog 100 unit/mL Sub-Q soln sliding scale [Active]; - PMHx: 16:37 Atrial Fib; Diabetes - IDDM; High Cholesterol; Pancreatitis; Depression; ss - PSHx: 16:37 Cholecystectomy; Angioplasty; ss - Immunization history:: Adult Immunizations unknown. - Social history:: Smoking status: Patient uses tobacco products, smokes one pack cigarettes per day. - Ebola Screening: : Patient denies exposure to infectious person Patient denies travel to an Ebola-affected area in the 21 days before illness onset. Screenin:45 Abuse screen: Denies threats or abuse. Denies injuries from another. Nutritional aj screening: No deficits noted. Tuberculosis screening: No symptoms or risk factors identified. Fall Risk None identified. Assessment: 18:45 General: Appears in no apparent distress. comfortable, Behavior is calm, cooperative, aj appropriate for age. Pain: Complains of pain in right upper quadrant and left upper quadrant. Neuro: Level of Consciousness is awake, alert, obeys commands, Oriented to person, place, time, situation, Appropriate for age. Respiratory: Airway is patent Respiratory effort is even, unlabored, Respiratory pattern is regular, symmetrical. GI: Abdomen is non-distended, obese, Bowel sounds present X 4 quads. Abd is soft and non tender Reports upper abdominal pain, nausea. Derm: Skin is intact, is healthy with good turgor, Skin is pink, warm \\T\\ dry. normal. 20:54 Reassessment: Patient appears in no apparent distress at this time. Patient and/or mg2 family updated on plan of care and expected duration. Pain level reassessed. Patient is alert, oriented x 3, equal unlabored respirations, skin warm/dry/pink. CATRACHO Elena of 4th floor will call me back to receive the report as per CATRACHO Forrester. Vital Signs: 16:37 BP 147 / 104; Pulse 102; Resp 16; Temp 97.5(TE); Pulse Ox 99% on R/A; Weight 94.8 kg; ss Height 5 ft. 10 in. (177.80 cm); Pain 7/10; 20:24 BP 133 / 83; Pulse 87; Resp 18; Pulse Ox 100% on R/A; Pain 0/10; mg2 16:37 Body Mass Index 29.99 (94.80 kg, 177.80 cm) ED Course: 16:30 Patient arrived in ED. mr 16:30 Archie Gloria MD is Private Physician. mr 16:36 Triage completed. ss 16:37 Arm band placed on left wrist. ss 17:03 Conner Montague MD is Attending Physician. janet 18:38 Wan Miramontes MD is Hospitalizing Provider. janet 18:45 Lynette Boo, CATRACHO is Primary Nurse. aj 18:45 Patient has correct armband on for positive identification. aj 18:45 Inserted saline lock: 22 gauge in left antecubital area, using aseptic technique. Blood aj collected. By Catherine Comer. 18:59 XRAY Chest (1 view) In Process Unspecified. EDMS 20:55 No provider procedures requiring assistance completed. Patient admitted, IV remains in mg2 place. Administered Medications: 18:47 Drug: Zofran 4 mg Route: IVP; Site: left antecubital; aj 19:37 Follow up: Response: No adverse reaction; Marked relief of symptoms mg2 18:48 Drug: NS 0.9% 1000 ml Route: IV; Rate: 1 bolus; Site: left antecubital; aj 20:53 Follow up: Response: No adverse reaction; IV Status: Completed infusion mg2 18:48 Drug: NS 0.9% 1000 ml Route: IV; Rate: 1 bolus; Site: left antecubital; aj 20:53 Follow up: Response: No adverse reaction; IV Status: Completed infusion mg2 18:48 Drug: Pepcid 20 mg Route: IVP; Site: left antecubital; aj 19:37 Follow up: Response: No adverse reaction; Marked relief of symptoms mg2 18:48 Drug: Dilaudid 1 mg Route: IVP; Site: left antecubital; aj 19:37 Follow up: Response: No adverse reaction; Marked relief of symptoms mg2 Outcome: 18:40 Decision to Hospitalize by Provider. janet 21:16 Admitted to Tele accompanied by tech, via wheelchair, room 425, with chart, Report mg2 called to CATRACHO Elena 21:16 Condition: stable 21:16 Instructed on the need for admit, Demonstrated understanding of instructions. 21:39 Patient left the ED. mg2 Signatures: Dispatcher [employer] Lynette Whitlock, Conner Barker RN, MD MD cha Rivera, Mary mr Smirch, Shelby, RN RN ss Gardose, Michele, RN RN mg2
--- NOTE | 2018-09-06 18:41 | EDPHYS ---
Physician Documentation [facility] Name: Nehemias Shearer Age: 43 yrs Sex: Male : 1975 Arrival Date: 09/06/2018 Time: 16:30 Bed 26 Private MD: Archie Gloria ED Physician Conner Montague HPI: 09/06 17:49 This 43 yrs old Male presents to ER via Ambulatory with complaints of janet Abdominal Pain, Arm Pain. 17:49 The patient or guardian complains of decreased range of motion, pain, that is acute. janet Historical: - Allergies: 16:37 venom-wasp; ss 16:37 tramadol; ss 16:37 PENICILLINS; ss 16:37 Ketorolac; ss 16:37 Iodinated Contrast Media - IV Dye; ss 16:37 adhesive tape-silicones; ss - Home Meds: 20:57 Crestor Oral [Active]; fenofibrate Oral [Active]; Lantus 100 unit/mL Sub-Q soln 40 mg2 units BID [Active]; Novolog 100 unit/mL Sub-Q soln sliding scale [Active]; - PMHx: 16:37 Atrial Fib; Diabetes - IDDM; High Cholesterol; Pancreatitis; Depression; ss - PSHx: 16:37 Cholecystectomy; Angioplasty; ss - Immunization history:: Adult Immunizations unknown. - Social history:: Smoking status: Patient uses tobacco products, smokes one pack cigarettes per day. - Ebola Screening: : Patient denies exposure to infectious person Patient denies travel to an Ebola-affected area in the 21 days before illness onset. ROS: 17:50 Constitutional: Negative for fever, chills, and weight loss, Eyes: Negative for injury, janet pain, redness, and discharge, ENT: Negative for injury, pain, and discharge, Neck: Negative for injury, pain, and swelling, Cardiovascular: Negative for chest pain, palpitations, and edema, Respiratory: Negative for shortness of breath, cough, wheezing, and pleuritic chest pain, Back: Negative for injury and pain, : Negative for injury, bleeding, discharge, and swelling, MS/Extremity: Negative for injury and deformity, Skin: Negative for injury, rash, and discoloration, Neuro: Negative for headache, weakness, numbness, tingling, and seizure, Psych: Negative for depression, anxiety, suicide ideation, homicidal ideation, and hallucinations, Allergy/Immunology: Negative for hives, rash, and allergies, Endocrine: Negative for neck swelling, polydipsia, polyuria, polyphagia, and marked weight changes, Hematologic/Lymphatic: Negative for swollen nodes, abnormal bleeding, and unusual bruising. 17:50 Abdomen/GI: Positive for abdominal pain, nausea and vomiting, of the epigastric area, right upper quadrant and left upper quadrant. Exam: 17:50 Constitutional: This is a well developed, well nourished patient who is awake, alert, janet and in no acute distress. Head/Face: Normocephalic, atraumatic. Eyes: Pupils equal round and reactive to light, extra-ocular motions intact. Lids and lashes normal. Conjunctiva and sclera are non-icteric and not injected. Cornea within normal limits. Periorbital areas with no swelling, redness, or edema. ENT: Nares patent. No nasal discharge, no septal abnormalities noted. Tympanic membranes are normal and external auditory canals are clear. Oropharynx with no redness, swelling, or masses, exudates, or evidence of obstruction, uvula midline. Mucous membranes moist. Neck: Trachea midline, no thyromegaly or masses palpated, and no cervical lymphadenopathy. Supple, full range of motion without nuchal rigidity, or vertebral point tenderness. No Meningismus. Chest/axilla: Normal chest wall appearance and motion. Nontender with no deformity. No lesions are appreciated. Cardiovascular: Regular rate and rhythm with a normal S1 and S2. No gallops, murmurs, or rubs. Normal PMI, no JVD. No pulse deficits. Respiratory: Lungs have equal breath sounds bilaterally, clear to auscultation and percussion. No rales, rhonchi or wheezes noted. No increased work of breathing, no retractions or nasal flaring. Back: No spinal tenderness. No costovertebral tenderness. Full range of motion. Male : Normal genitalia with no discharge or lesions. Skin: Warm, dry with normal turgor. Normal color with no rashes, no lesions, and no evidence of cellulitis. MS/ Extremity: Pulses equal, no cyanosis. Neurovascular intact. Full, normal range of motion. Neuro: Awake and alert, GCS 15, oriented to person, place, time, and situation. Cranial nerves II-XII grossly intact. Motor strength 5/5 in all extremities. Sensory grossly intact. Cerebellar exam normal. Normal gait. Psych: Awake, alert, with orientation to person, place and time. Behavior, mood, and affect are within normal limits. 17:50 Abdomen/GI: Inspection: abdomen appears normal, Bowel sounds: normal, Palpation: mild abdominal tenderness, moderate abdominal tenderness, in the epigastric area, right upper quadrant and left upper quadrant. Vital Signs: 16:37 BP 147 / 104; Pulse 102; Resp 16; Temp 97.5(TE); Pulse Ox 99% on R/A; Weight 94.8 kg; ss Height 5 ft. 10 in. (177.80 cm); Pain 7/10; 20:24 BP 133 / 83; Pulse 87; Resp 18; Pulse Ox 100% on R/A; Pain 0/10; mg2 16:37 Body Mass Index 29.99 (94.80 kg, 177.80 cm) ss MDM: 17:03 Patient medically screened. [facility] 17:51 Data reviewed: vital signs, nurses notes, lab test result(s), EKG, radiologic studies, [facility] CT scan, plain films. 09/06 17:49 Order name: Basic Metabolic Panel; Complete Time: 19:26 [facility] 09/06 17:49 Order name: CBC with Diff; Complete Time: 19:26 [facility] 09/06 17:49 Order name: LFT's; Complete Time: 19:26 [facility] 09/06 17:49 Order name: Magnesium; Complete Time: 19:26 [facility] 09/06 17:49 Order name: NT PRO-BNP; Complete Time: 19:26 [facility] 09/06 17:49 Order name: PT-INR; Complete Time: 19:26 [facility] 09/06 17:49 Order name: Troponin (emerg Dept Use Only); Complete Time: 19:26 [facility] 09/06 17:49 Order name: Lipase; Complete Time: 19:26 [facility] 09/06 17:49 Order name: Urine Culture [facility] 09/06 19:34 Order name: CBC with Automated Diff EDMS 09/06 19:34 Order name: CBC with Automated Diff EDGA 09/06 19:34 Order name: Comprehensive Metabolic Panel EDGA 09/06 19:34 Order name: Comprehensive Metabolic Panel EDMS 09/06 19:44 Order name: Urine Dipstick--Ancillary (enter results) wa 09/06 17:49 Order name: XRAY Chest (1 view) [facility] 09/06 17:49 Order name: EKG; Complete Time: 17:51 [facility] 09/06 17:49 Order name: Cardiac monitoring; Complete Time: 19:38 [facility] 09/06 17:49 Order name: EKG - Nurse/Tech; Complete Time: 19:38 [facility] 09/06 17:49 Order name: IV Saline Lock; Complete Time: 19:38 [facility] 09/06 17:49 Order name: Labs collected and sent; Complete Time: 19:38 [facility] 09/06 17:49 Order name: O2 Per Protocol; Complete Time: 19:38 [facility] 09/06 17:49 Order name: CT Abd/Pelvis - Without Cont [facility] 09/06 19:34 Order name: CONS Pharmacy Consult [facility] 09/06 19:34 Order name: NPO [facility] 09/06 20:56 Order name: CT [facility] 09/06 17:49 Order name: O2 Sat Monitoring; Complete Time: 19:38 [facility] 09/06 17:49 Order name: Urine Dipstick-Ancillary (obtain specimen); Complete Time: 19:37 [facility] Administered Medications: 18:47 Drug: Zofran 4 mg Route: IVP; Site: left antecubital; aj 19:37 Follow up: Response: No adverse reaction; Marked relief of symptoms mg2 18:48 Drug: NS 0.9% 1000 ml Route: IV; Rate: 1 bolus; Site: left antecubital; aj 20:53 Follow up: Response: No adverse reaction; IV Status: Completed infusion mg2 18:48 Drug: NS 0.9% 1000 ml Route: IV; Rate: 1 bolus; Site: left antecubital; aj 20:53 Follow up: Response: No adverse reaction; IV Status: Completed infusion mg2 18:48 Drug: Pepcid 20 mg Route: IVP; Site: left antecubital; aj 19:37 Follow up: Response: No adverse reaction; Marked relief of symptoms mg2 18:48 Drug: Dilaudid 1 mg Route: IVP; Site: left antecubital; aj 19:37 Follow up: Response: No adverse reaction; Marked relief of symptoms mg2 Disposition: 09/06/18 18:40 Hospitalization ordered by Wan Miramontes for Observation. Preliminary diagnosis are Abdominal tenderness, Vomiting, Other chronic pancreatitis - hx of, Hyperlipidemia, unspecified - triglyceridemia. - Bed requested for Telemetry/MedSurg (observation). - Status is Observation. mg2 - Condition is Stable. - Problem is new. - Symptoms have improved. UTI on Admission? No Signatures: Dispatcher [employer] EDLynette Muñoz, RN RN Conner Bhatia MD MD cha Smirch, Shelby, RN RN ss Idania Berry RN RN cg Dalton Naranjo RN RN mg2 Corrections: (The following items were deleted from the chart) 19:27 18:40 Hospitalization Ordered by Wan Miramontes MD for Inpatient Admission. Preliminary janet diagnosis is Abdominal tenderness; Vomiting; Other chronic pancreatitis; Hyperlipidemia, unspecified - triglyceridemia. Bed requested for Telemetry/MedSurg (Inpatient). Status is Inpatient Admission. Condition is Stable. Problem is new. Symptoms have improved. UTI on Admission? No. janet 19:48 19:27 09/06/2018 18:40 Hospitalization Ordered by Wan Miramontes MD for Observation. cg Preliminary diagnosis is Abdominal tenderness; Vomiting; Other chronic pancreatitis - hx of; Hyperlipidemia, unspecified - triglyceridemia. Bed requested for Telemetry/MedSurg (observation). Status is Observation. Condition is Stable. Problem is new. Symptoms have improved. UTI on Admission? No. janet 21:39 19:48 09/06/2018 18:40 Hospitalization Ordered by Wan Miramontes MD for Observation. mg2 Preliminary diagnosis is Abdominal tenderness; Vomiting; Other chronic pancreatitis - hx of; Hyperlipidemia, unspecified - triglyceridemia. Bed requested for Telemetry/MedSurg (observation). Status is Observation. Condition is Stable. Problem is new. Symptoms have improved. UTI on Admission? No. cg
[2018-09-06 18:50] LABS: Absolute Lymphocytes (CBC) 1.7 K/uL (0.7-4.9); Absolute Monocytes 0.5 K/uL (0.1-1.3); Absolute Neutrophil 5.3 K/uL (1.8-8.0); Basophils % 0.5 % (0-1.3); Eosinophils % 1.6 % (0-4.4); Lymphocytes % 21.6 % (15.3-44.8); MCH 31.3 pg (27.0-35.0); MCV 88.5 fL (80-100); MPV 7.7 fL (7.6-11.3); RBC Red Blood Cell Count 5.31 M/uL (4.33-5.43)
[2018-09-06 19:09] LABS: ALT/SGPT 26 U/L (12-78); AST/SGOT 11 U/L (15-37); Albumin 3.5 g/dL (3.4-5.0); Alkaline Phosphatase 119 U/L (45-117); BUN Blood Urea Nitrogen 9 mg/dL (7-18); Bicarbonate 28 mmol/L (21-32); Bilirubin Direct < 0.1 mg/dL (0-0.2); Bilirubin Total 0.5 mg/dL (0.2-1.0); Glucose Level 222 mg/dL (74-106); Lipase 83 U/L (73-393); Magnesium 2.1 mg/dL (1.8-2.4); NT PRO-BNP 63 pg/mL (<125); Potassium 3.9 mmol/L (3.5-5.1); Sodium Level 140 mmol/L (136-145); Troponin (Emerg Dept Use Only) < 0.02 ng/mL (0.0-0.045)
--- NOTE | 2018-09-06 19:24 | RAD REPORT ---
EXAM DESCRIPTION: RAD - Chest Single View - 09/06/2018 6:59 pm CLINICAL HISTORY: ABDOMINAL DISTENTION Chest pain. COMPARISON: Chest Single View dated 05/10/2018; Chest Single View dated 06/22/2017; Chest Single View d ated 12/28/2016; Chest Pa And Lat (2 Views) dated 12/16/2016 FINDINGS: Portable technique limits examination quality. The lungs are grossly clear. The heart is normal in size. No displaced fractures. IMPRESSION: No acute intrathoracic process suspected.
[2018-09-06] MEDS ORDERED: ACETAMINOPHEN 500 MG TAB PO PRN (19:29)
[2018-09-06] MEDS ORDERED: ONDANSETRON 4 MG/2 ML VIAL IV PRN (19:29)
[2018-09-06] MEDS ORDERED: NA CHLORIDE 0.9% 1,000 ML IV SCH (20:00)
--- NOTE | 2018-09-06 20:55 | RAD REPORT ---
EXAM DESCRIPTION: CT - Abdomen Pelvis Wo Contrast - 09/06/2018 8:46 pm CLINICAL HISTORY: Abdominal pain. ABD PAIN COMPARISON: Abdomen Pelvis Wo Contrast dated 05/10/2018 TECHNIQUE: CT imaging of the abdomen and pelvis was performed without contrast. Solid organ and vasc ular assessment is limited due to lack of IV contrast. All CT scans are performed using dose optimization technique as appropriate and may include automated exposure control or mA/KV adjustment according to patient size. FINDINGS: The lower lung heredia are clear.Cholecystectomy clips. The liver, spleen, pancreas, adrenal glands and right kidney are within normal limits for a limited n on-contrast examination.Small calculus is present mid-pole left kidney. No bowel obstruction, free air, free fluid or abscess. Sigmoid diverticulosis is present without dive rticulitis. The appendix is normal. The osseous structures are within normal limits. IMPRESSION: Punctate left renal calculus without hydronephrosis. Sigmoid diverticulosis without diverticulitis. A limited non-contrast examination was performed as detailed.
[2018-09-06] MEDS: MORPHINE 4 MG/ML SYR IV PRN (21:38)
[2018-09-06] MEDS ORDERED: MORPHINE 4 MG/ML SYR ONE (21:43)
[2018-09-06 22:05] LABS: Urine Blood TRACE (NEG); Urine Glucose 2+ (NEG); Urine Protein NEGATIVE (NEG); Urine pH 7.5 (5.0-7.0)
[2018-09-06 22:18] VITALS: BMI 31.3
[2018-09-06 23:46] LABS: Urine Appearance CLEAR; Urine Bilirubin NEGATIVE (NEG); Urine Blood NEGATIVE (NEG); Urine Color YELLOW; Urine Glucose NEGATIVE (NEG); Urine Protein NEGATIVE (NEG); Urine Urobilinogen 0.2 mg/dL (0.2-1.0); Urine pH 5.5 (5.0-7.0)
[2018-09-06 23:49] LABS: Urine Microscopic Reflex NO UMIC
[2018-09-07] MEDS: NA CHLORIDE 0.9% 1,000 ML IV SCH ×5 (01:00→21:31)
[2018-09-07] MEDS: MORPHINE 4 MG/ML SYR IV PRN ×3 (02:19→11:19)
[2018-09-07 05:20] LABS: Absolute Monocytes 0.5 K/uL (0.1-1.3); Absolute Neutrophil 4.6 K/uL (1.8-8.0); Basophils % 0.5 % (0-1.3); Eosinophils % 2.4 % (0-4.4); Hematocrit 42.7 % (39.6-49.0); Lymphocytes % 27.1 % (15.3-44.8); MCV 89.8 fL (80-100); MPV 7.5 fL (7.6-11.3); Monocytes % 6.8 % (3.3-12.3); RBC Red Blood Cell Count 4.76 M/uL (4.33-5.43)
[2018-09-07 05:34] LABS: ALT/SGPT 25 U/L (12-78); AST/SGOT 13 U/L (15-37); Alkaline Phosphatase 100 U/L (45-117); BUN Blood Urea Nitrogen 11 mg/dL (7-18); Bicarbonate 26 mmol/L (21-32); Bilirubin Total 0.5 mg/dL (0.2-1.0); Glucose Level 148 mg/dL (74-106); HDL Cholesterol 24 mg/dL (40-60); LDL Cholesterol, Calculated ND (<130); Lipase 87 U/L (73-393); Potassium 3.9 mmol/L (3.5-5.1); Protein, Total 5.9 g/dL (6.4-8.2); Sodium Level 142 mmol/L (136-145)
[2018-09-07 05:57] LABS: LDL, Direct 65 mg/dL (100-129)
[2018-09-07] MEDS: GEMFIBROZIL 600 MG TAB PO SCH ×3 (06:00→21:31)
--- NOTE | 2018-09-07 07:06 | EKG ---
Test Date: 2018-09-06 Test Time: 18:44:49 [employer] Fitter: ALISHA MEASUREMENT RESULTS: Intervals: Rate: 91 VT: 138 QRSD: 102 QT: 366 QTc: 450 [place]: P: 24 VT: 138 QRS: -18 T: 48 INTERPRETIVE STATEMENTS: Normal sinus rhythm Incomplete right bundle branch block Borderline ECG Compared to ECG 05/10/2018 15:36:14 Incomplete right bundle-branch block now present Sinus tachycardia no longer present Electronically Signed On 09-07-18 07:05:22 POULTRY EVISCERATOR by Sebastian Milner
[2018-09-07] MEDS: DOCOSAHEXANOIC AC/EPA 1000 MG PO SCH ×2 (09:00→21:31)
[2018-09-07] MEDS: PANTOPRAZOLE 40MG TABLET PO SCH (09:00)
[2018-09-07] MEDS: ROSUVASTATIN 10 MG TAB PO SCH ×2 (09:00→17:42)
[2018-09-07] MEDS: INSULIN GLARGINE 100 UNITS/ML SQ SCH ×2 (09:00→21:40)
--- NOTE | 2018-09-07 13:18 | P.HP ---
Certification for Inpatient Patient admitted to: Observation With expected LOS: <2 Midnights Patient will require the following post-hospital care: None Practitioner: I am a practitioner with admitting privileges, knowledge of patient current condition, hospital course, and medical plan of care. Services: Services provided to patient in accordance with Admission requirements found in Title 42 Section 412.3 of the Code of Federal Regulations Patient History Date of Service: 09/06/18 Reason for admission: Chronic pancreatitis with hypertriglyceridemia History of Present Illness: Patient is a 43-year-old gentleman with a history of pancreatitis secondary to hypertriglyceridemia. Patient states he has not been taking his medications recently. His triglyceride levels have not been checked in a while. He started having epigastric tenderness so came into the ER. His pain was 10/10. It radiated to his back. He felt like it with pancreatitis pain. He came to the ER for evaluation. His CT of the abdomen and pelvis did not reveal any acute pancreatitis findings. Patient's labs also did not reveal elevated lipase level. We just need observation and will do so triglyceride levels and monitor him overnight. We will probably start him on a diet in the morning and if tolerates and labs look ok we will let him go home. Allergies adhesive tape Allergy (Verified 07/10/17 06:08) Itching Iodinated Contrast- Oral and IV Dye [Iodinated Contrast Media - IV Dye] Allergy (Verified 07/10/17 06:08) Anaphylaxis ketorolac tromethamine [From Toradol] Allergy (Verified 05/10/18 20:52) Shortness of breath Penicillins Allergy (Verified 07/10/17 06:08) Anaphylaxis venom-wasp [wasp venom] Allergy (Verified 07/10/17 06:08) Anaphylaxis adhesive tape-kristi Allergy (Uncoded 08/25/17 16:46) Unknown Home Medications: Insulin Aspart [Novolog*] See Protocol SQ ACHS 12/28/16 Fenofibrate [Tricor*] 160 mg PO DAILY 09/07/18 Gabapentin 100 mg PO TID 09/07/18 Hydrocodone 10/APAP 325 [[place] 10/325*] 10 mg PO PRN PRN 09/07/18 Insulin Glargine Human [Lantus*] 40 units SQ BID 09/07/18 Rosuvastatin [Crestor*] 40 mg PO DAILY 09/07/18 - Past Medical/Surgical History Diabetic: Yes -: Obstructive sleep apnea -: Diabetes mellitus type 2 -: Chronic recurrent hypertriglyceridemia pancreatitis -: Obesity -: Nonobstructing renal calculus, left side -: Cholecystectomy -: angioplasty 07/2017 Psychosocial/ Personal History: He is but has a girlfriend. Has 1 child. He reports working in the [employer] industry - Family History Mother Medical History: Diabetes Father Medical History: Diabetes Notes: pancreatitis - Social History Smoking Status: Current every day smoker Alcohol use: No CD- Drugs: No Caffeine use: Yes Place of Residence: Home Review of Systems 10-point ROS is otherwise unremarkable Physical Examination - Vital Signs Temperature: 97.6 F Blood Pressure: 132/90 Pulse: 81 Respirations: 18 Pulse Ox (%): 96 - Physical Exam General: Alert, In no apparent distress, Oriented x3 HEENT: Atraumatic, PERRLA, Mucous membr. moist/pink, EOMI, Sclerae nonicteric Neck: Supple, 2+ carotid pulse no bruit, No LAD, Without JVD or thyroid abnormality Respiratory: Clear to auscultation bilaterally, Normal air movement Cardiovascular: Regular rate/rhythm, Normal S1 S2, No murmurs Gastrointestinal: Normal bowel sounds, Soft and benign, Non-distended, No tenderness Musculoskeletal: No clubbing, No swelling, No tenderness Integumentary: No rashes Neurological: Normal gait, Normal speech, Normal strength at 5/5 x4 extr, Normal tone, Normal affect Lymphatics: No axilla or inguinal lymphadenopathy - Studies Laboratory Data (last 24 hrs) 09/06/18 18:37: PT 11.8, INR 1.00 09/06/18 18:37: WBC 7.7, Hgb 16.6, Hct 47.0, Plt Count 210 09/06/18 18:37: Sodium 140, Potassium 3.9, BUN 9, Creatinine 0.70, Glucose 222 H , Magnesium 2.1, Total Bilirubin 0.5, AST 11 L, ALT 26, Alkaline Phosphatase 119 H, Lipase 83 Assessment & Plan - Problems (Diagnosis) (1) Abdominal pain Current Visit: Yes Status: Acute (2) Acute pancreatitis Onset Date: 12/16/16 Current Visit: No Status: Acute Qualifiers: (3) Pancreatitis, recurrent Onset Date: 11/18/16 Current Visit: No Status: Acute (4) Vomiting Onset Date: 12/29/16 Current Visit: No Status: Acute (5) Diabetes mellitus Onset Date: 04/25/16 Current Visit: No Status: Chronic Qualifiers: (6) Hyperlipidemia Onset Date: 12/29/16 Current Visit: No Status: Chronic Qualifiers: (7) Hypertension Current Visit: No Status: Chronic Qualifiers: (8) Hypertriglyceridemia Onset Date: 11/18/16 Current Visit: No Status: Chronic (9) Obesity (BMI 30-39.9) Onset Date: 04/25/16 Current Visit: No Status: Chronic - Plan Plan: 1. IV fluids 2. Lipid profile 3. Pain control 4. NPO 5. If labs look okay to start diet in the morning 6. Observation for now pending labs in the morning 7. Discussed with patient importance of compliance with medication 8. GI DVT prophylaxis - Advance Directives Does patient have a Living Will: No Does patient have a Durable POA for Healthcare: No - Code Status/Comfort Care Code Status Assessed: Yes Code Status: Full Code Critical Care: No Time Spent Managing PTS Care (In Minutes): 50
[2018-09-07] MEDS ORDERED: MORPHINE 2 MG/ML SYR IV PRN (14:50)
[2018-09-07] MEDS ORDERED: TRAMADOL HCL 50 MG TAB PO PRN (17:24)
--- NOTE | 2018-09-07 17:28 | P.PN ---
Subjective Date of Service: 09/07/18 Chief Complaint: Chronic pancreatitis with hypertriglyceridemia Patient seen and examined at bedside with RN. Chart reviewed. Case discussed with patient at bedside. Currently patient is complaining of having some abdominal pain. Nausea and vomiting has resolved. Review of Systems 10-point ROS is otherwise unremarkable Physical Examination - Vital Signs Temperature: 97.6 F Blood Pressure: 132/90 Pulse: 81 Respirations: 18 Pulse Ox (%): 96 - Physical Exam General: Alert, In no apparent distress HEENT: Atraumatic, PERRLA, EOMI Neck: Supple, JVD not distended Respiratory: Clear to auscultation bilaterally, Normal air movement Cardiovascular: Regular rate/rhythm, Normal S1 S2 Gastrointestinal: Normal bowel sounds, No tenderness Musculoskeletal: No tenderness Integumentary: No rashes Neurological: Normal speech, Normal tone, Normal affect Lymphatics: No axilla or inguinal lymphadenopathy - Studies Laboratory Data (last 24 hrs) 09/06/18 18:37: PT 11.8, INR 1.00 09/06/18 18:37: WBC 7.7, Hgb 16.6, Hct 47.0, Plt Count 210 09/06/18 18:37: Sodium 140, Potassium 3.9, BUN 9, Creatinine 0.70, Glucose 222 H , Magnesium 2.1, Total Bilirubin 0.5, AST 11 L, ALT 26, Alkaline Phosphatase 119 H, Lipase 83 Medications List Reviewed: Yes Assessment And Plan - Current Problems (Diagnosis) (1) Acute pancreatitis Onset Date: 12/16/16 Current Visit: No Status: Acute Plan: Acute pancreatitis most likely secondary to hypertriglyceridemia. -IV fluids, pain management, NPO at this time -patient started on gemfibrozil as well. Qualifiers: Pancreatitis type: other Acute pancreatitis complication: no infection or necrosis Qualified Code(s): K85.80 - Other acute pancreatitis without necrosis or infection (2) Diabetes mellitus Onset Date: 04/25/16 Current Visit: No Status: Chronic Qualifiers: Diabetes mellitus type: type 2 Diabetes mellitus topper packer insulin use: without fci use Diabetes mellitus complication status: without complication Qualified Code(s): E11.9 - Type 2 diabetes mellitus without complications (3) GERD (gastroesophageal reflux disease) Onset Date: 12/16/16 Current Visit: No Status: Chronic Qualifiers: Esophagitis presence: without esophagitis Qualified Code(s): K21.9 - Gastro -esophageal reflux disease without esophagitis (4) Hyperlipidemia Onset Date: 12/29/16 Current Visit: No Status: Chronic Qualifiers: Hyperlipidemia type: mixed hyperlipidemia (5) Hypertension Current Visit: No Status: Chronic Qualifiers: Hypertension type: essential hypertension (6) Hypertriglyceridemia Onset Date: 11/18/16 Current Visit: No Status: Chronic (7) Nicotine dependence Onset Date: 06/23/17 Current Visit: No Status: Chronic Qualifiers: Nicotine product type: cigarettes Substance use status: uncomplicated Qualified Code(s): F17.210 - Nicotine dependence, cigarettes, uncomplicated (8) Obesity (BMI 30-39.9) Onset Date: 04/25/16 Current Visit: No Status: Chronic (9) Obstructive sleep apnea Onset Date: 04/25/16 Current Visit: No Status: Chronic - Plan Pending clinical improvement at this time. Patient still complaining of having some residual abdominal pain. No nausea and vomiting noted. Currently will keep patient NPO and advanced the diet slowly. Pain management with IV medication at this time. Once patient tolerating p.o. diet will advance it to oral. Anticipate discharge in next 24-48 hr depending on patient's clinical improvement. Discharge Plan: Home Plan to discharge in: 48 Hours - Code Status/Comfort Care Code Status Assessed: Yes Critical Care: No
[2018-09-07] MEDS: HYDROCODONE/APAP 10/325 TAB PO PRN (21:31)
[2018-09-07 22:26] VITALS: O2SAT 94
[2018-09-08] MEDS: NA CHLORIDE 0.9% 1,000 ML IV SCH ×3 (03:32→10:20)
[2018-09-08] MEDS: HYDROCODONE/APAP 10/325 TAB PO PRN ×2 (05:30→12:13)
[2018-09-08 07:54] LABS: HDL Cholesterol 24 mg/dL (40-60); LDL Cholesterol, Calculated ND (<130)
[2018-09-08 08:04] LABS: LDL, Direct 73 mg/dL (100-129)
[2018-09-08] MEDS: PANTOPRAZOLE 40MG TABLET PO SCH (09:00)
[2018-09-08] MEDS: DOCOSAHEXANOIC AC/EPA 1000 MG PO SCH (09:18)
[2018-09-08] MEDS: GEMFIBROZIL 600 MG TAB PO SCH (09:18)
[2018-09-08] MEDS: INSULIN GLARGINE 100 UNITS/ML SQ SCH (09:20)
[2018-09-08] MEDS: ROSUVASTATIN 10 MG TAB PO SCH (10:26)
[2018-09-08 12:12] VITALS: BP 144/101; TEMP 97.3
--- NOTE | 2018-09-08 16:30 | P.DS ---
Admission Date: 09/06/18 Discharge Date: 09/08/18 Disposition: ROUTINE DISCHARGE Discharge Condition: GOOD Reason for Admission: Chronic pancreatitis with hypertriglyceridemia - Problems (1) Acute pancreatitis Onset Date: 12/16/16 Status: Acute Qualifiers: Pancreatitis type: other Acute pancreatitis complication: no infection or necrosis Qualified Code(s): K85.80 - Other acute pancreatitis without necrosis or infection (2) Diabetes mellitus Onset Date: 04/25/16 Status: Chronic Qualifiers: Diabetes mellitus type: type 2 Diabetes mellitus skilled nursing insulin use: without intermission coordinator use Diabetes mellitus complication status: without complication Qualified Code(s): E11.9 - Type 2 diabetes mellitus without complications (3) GERD (gastroesophageal reflux disease) Onset Date: 12/16/16 Status: Chronic Qualifiers: Esophagitis presence: without esophagitis Qualified Code(s): K21.9 - Gastro -esophageal reflux disease without esophagitis (4) Hyperlipidemia Onset Date: 12/29/16 Status: Chronic Qualifiers: Hyperlipidemia type: mixed hyperlipidemia (5) Hypertension Status: Chronic Qualifiers: Hypertension type: essential hypertension (6) Hypertriglyceridemia Onset Date: 11/18/16 Status: Chronic (7) Nicotine dependence Onset Date: 06/23/17 Status: Chronic Qualifiers: Nicotine product type: cigarettes Substance use status: uncomplicated Qualified Code(s): F17.210 - Nicotine dependence, cigarettes, uncomplicated (8) Obesity (BMI 30-39.9) Onset Date: 04/25/16 Status: Chronic (9) Obstructive sleep apnea Onset Date: 04/25/16 Status: Chronic Vital Signs/Physical Exam: Temp Pulse Resp BP Pulse Ox 97.3 F 87 16 144/101 H 98 09/08/18 12:00 09/08/18 12:00 09/08/18 12:00 09/08/18 12:00 09/08/18 12:00 General: Alert, In no apparent distress HEENT: Atraumatic, PERRLA, EOMI Neck: Supple, JVD not distended Respiratory: Clear to auscultation bilaterally, Normal air movement Cardiovascular: Regular rate/rhythm, Normal S1 S2 Gastrointestinal: Normal bowel sounds, No tenderness Musculoskeletal: No tenderness Integumentary: No rashes Neurological: Normal speech, Normal tone, Normal affect Lymphatics: No axilla or inguinal lymphadenopathy Laboratory Data at Discharge: WBC 7.3 K/uL (4.3-10.9) 09/07/18 05:00 Hgb 14.8 g/dL (13.6-17.9) 09/07/18 05:00 Hct 42.7 % (39.6-49.0) 09/07/18 05:00 Plt Count 178 K/uL (152-406) 09/07/18 05:00 PT 11.8 SECONDS (9.5-12.5) 09/06/18 18:37 INR 1.00 09/06/18 18:37 Sodium 142 mmol/L (136-145) 09/07/18 05:00 Potassium 3.9 mmol/L (3.5-5.1) 09/07/18 05:00 BUN 11 mg/dL (7-18) 09/07/18 05:00 Creatinine 0.50 mg/dL (0.55-1.3) L 09/07/18 05:00 Glucose 148 mg/dL (74-106) H 09/07/18 05:00 Magnesium 2.1 mg/dL (1.8-2.4) 09/06/18 18:37 Total Bilirubin 0.5 mg/dL (0.2-1.0) 09/07/18 05:00 AST 13 U/L (15-37) L 09/07/18 05:00 ALT 25 U/L (12-78) 09/07/18 05:00 Alkaline Phosphatase 100 U/L (45-117) 09/07/18 05:00 Triglycerides 965 mg/dL (<150) H 09/08/18 07:13 Cholesterol 182 mg/dL (<200) 09/08/18 07:13 LDL Cholesterol Direct 73 mg/dL (100-129) L 09/08/18 07:13 HDL Cholesterol 24 mg/dL (40-60) L 09/08/18 07:13 Cholesterol/HDL Ratio 7.58 09/08/18 07:13 Lipase 87 U/L (73-393) 09/07/18 05:00 Home Medications: Insulin Aspart [Novolog*] See Protocol SQ ACHS 12/28/16 Gabapentin 100 mg PO TID 09/07/18 Hydrocodone 10/APAP 325 [[place] 10/325*] 10 mg PO PRN PRN 09/07/18 Insulin Glargine Human [Lantus*] 40 units SQ BID 09/07/18 Docosahexanoic AC/Epa [Fish Oil 1,000 MG*] 2,000 mg PO BID #60 cap 09/08/18 Gemfibrozil [Lopid*] 600 mg PO BID #60 tab 09/08/18 Pantoprazole [Protonix Tab*] 40 mg PO DAILY #30 tab 09/08/18 Rosuvastatin [Crestor*] 40 mg PO DAILY #30 tab 09/08/18 traMADol HCL [Ultram*] 50 mg PO Q6HP PRN #20 tab 09/08/18 New Medications: traMADol HCL [Ultram*] 50 mg PO Q6HP PRN #20 tab PRN Reason: Pain Docosahexanoic AC/Epa [Fish Oil 1,000 MG*] 2,000 mg PO BID #60 cap Gemfibrozil [Lopid*] 600 mg PO BID #60 tab Pantoprazole [Protonix Tab*] 40 mg PO DAILY #30 tab Rosuvastatin [Crestor*] 40 mg PO DAILY #30 tab Diet: [place] Activity: Ad anay Followup: Shiloh Arrington MD [ACTIVE - CAN ADMIT] - 1 Week Archie Gloria MD [OUTSIDE PHYSICIAN] -
--- NOTE | 2018-09-08 16:34 | P.DS ---
Admission Date: 09/06/18 Discharge Date: 09/08/18 Disposition: ROUTINE DISCHARGE Discharge Condition: GOOD Reason for Admission: Chronic pancreatitis with hypertriglyceridemia - Problems (1) Acute pancreatitis Onset Date: 12/16/16 Status: Acute Qualifiers: Pancreatitis type: other Acute pancreatitis complication: no infection or necrosis Qualified Code(s): K85.80 - Other acute pancreatitis without necrosis or infection (2) Diabetes mellitus Onset Date: 04/25/16 Status: Chronic Qualifiers: Diabetes mellitus type: type 2 Diabetes mellitus snf insulin use: without snf use Diabetes mellitus complication status: without complication Qualified Code(s): E11.9 - Type 2 diabetes mellitus without complications (3) GERD (gastroesophageal reflux disease) Onset Date: 12/16/16 Status: Chronic Qualifiers: Esophagitis presence: without esophagitis Qualified Code(s): K21.9 - Gastro -esophageal reflux disease without esophagitis (4) Hyperlipidemia Onset Date: 12/29/16 Status: Chronic Qualifiers: Hyperlipidemia type: mixed hyperlipidemia (5) Hypertension Status: Chronic Qualifiers: Hypertension type: essential hypertension (6) Hypertriglyceridemia Onset Date: 11/18/16 Status: Chronic (7) Nicotine dependence Onset Date: 06/23/17 Status: Chronic Qualifiers: Nicotine product type: cigarettes Substance use status: uncomplicated Qualified Code(s): F17.210 - Nicotine dependence, cigarettes, uncomplicated (8) Obesity (BMI 30-39.9) Onset Date: 04/25/16 Status: Chronic (9) Obstructive sleep apnea Onset Date: 04/25/16 Status: Chronic Brief History of Present Illness: Patient is a 43-year-old gentleman with a history of pancreatitis secondary to hypertriglyceridemia. Patient states he has not been taking his medications recently. His triglyceride levels have not been checked in a while. He started having epigastric tenderness so came into the ER. His pain was 10/10. It radiated to his back. He felt like it with pancreatitis pain. He came to the ER for evaluation. His CT of the abdomen and pelvis did not reveal any acute pancreatitis findings. Patient's labs also did not reveal elevated lipase level. We just need observation and will do so triglyceride levels and monitor him overnight. We will probably start him on a diet in the morning and if tolerates and labs look ok we will let him go home. Hospital Course: Overall during the hospital stay patient remained stable The patient was initially admitted to the hospital for acute pancreatitis with a history of chronic pancreatitis secondary to alcoholism. Patient was kept NPO with IV hydration and IV pain medication while here in the hospital. Patient stated that his nausea vomiting does resolve and his pain did get better and patient was eventually switched over to oral pain medication. While here in the hospital patient was also going down to smoking thus he was educated extensively in his tobacco cessation and how it affects his pancreatitis. Patient then was advanced to a clear liquid diet which she tolerated well and thus patient was discharged home under stable condition and was asked to follow up with primary care provider for opioid prescription along with followup for his chronic pancreatitis. Patient demonstrated understanding and thus was discharged home under stable condition. Patient does have chronic history of alcohol and tobacco abuse along with opiate abuse as well. Patient' s pain was controlled on oral pain medication and did not have any nausea vomiting and was tolerating diet well and thus was discharged home under stable condition Vital Signs/Physical Exam: Temp Pulse Resp BP Pulse Ox 97.3 F 87 16 144/101 H 98 09/08/18 12:00 09/08/18 12:00 09/08/18 12:00 09/08/18 12:00 09/08/18 12:00 General: Alert, In no apparent distress HEENT: Atraumatic, PERRLA, EOMI Neck: Supple, JVD not distended Respiratory: Clear to auscultation bilaterally, Normal air movement Cardiovascular: Regular rate/rhythm, Normal S1 S2 Gastrointestinal: Normal bowel sounds, No tenderness Musculoskeletal: No tenderness Integumentary: No rashes Neurological: Normal speech, Normal tone, Normal affect Lymphatics: No axilla or inguinal lymphadenopathy Laboratory Data at Discharge: WBC 7.3 K/uL (4.3-10.9) 09/07/18 05:00 Hgb 14.8 g/dL (13.6-17.9) 09/07/18 05:00 Hct 42.7 % (39.6-49.0) 09/07/18 05:00 Plt Count 178 K/uL (152-406) 09/07/18 05:00 PT 11.8 SECONDS (9.5-12.5) 09/06/18 18:37 INR 1.00 09/06/18 18:37 Sodium 142 mmol/L (136-145) 09/07/18 05:00 Potassium 3.9 mmol/L (3.5-5.1) 09/07/18 05:00 BUN 11 mg/dL (7-18) 09/07/18 05:00 Creatinine 0.50 mg/dL (0.55-1.3) L 09/07/18 05:00 Glucose 148 mg/dL (74-106) H 09/07/18 05:00 Magnesium 2.1 mg/dL (1.8-2.4) 09/06/18 18:37 Total Bilirubin 0.5 mg/dL (0.2-1.0) 09/07/18 05:00 AST 13 U/L (15-37) L 09/07/18 05:00 ALT 25 U/L (12-78) 09/07/18 05:00 Alkaline Phosphatase 100 U/L (45-117) 09/07/18 05:00 Triglycerides 965 mg/dL (<150) H 09/08/18 07:13 Cholesterol 182 mg/dL (<200) 09/08/18 07:13 LDL Cholesterol Direct 73 mg/dL (100-129) L 09/08/18 07:13 HDL Cholesterol 24 mg/dL (40-60) L 09/08/18 07:13 Cholesterol/HDL Ratio 7.58 09/08/18 07:13 Lipase 87 U/L (73-393) 09/07/18 05:00 Home Medications: Insulin Aspart [Novolog*] See Protocol SQ ACHS 12/28/16 Gabapentin 100 mg PO TID 09/07/18 Hydrocodone 10/APAP 325 [[place] 10/325*] 10 mg PO PRN PRN 09/07/18 Insulin Glargine Human [Lantus*] 40 units SQ BID 09/07/18 Docosahexanoic AC/Epa [Fish Oil 1,000 MG*] 2,000 mg PO BID #60 cap 09/08/18 Gemfibrozil [Lopid*] 600 mg PO BID #60 tab 09/08/18 Pantoprazole [Protonix Tab*] 40 mg PO DAILY #30 tab 09/08/18 Rosuvastatin [Crestor*] 40 mg PO DAILY #30 tab 09/08/18 traMADol HCL [Ultram*] 50 mg PO Q6HP PRN #20 tab 09/08/18 New Medications: traMADol HCL [Ultram*] 50 mg PO Q6HP PRN #20 tab PRN Reason: Pain Docosahexanoic AC/Epa [Fish Oil 1,000 MG*] 2,000 mg PO BID #60 cap Gemfibrozil [Lopid*] 600 mg PO BID #60 tab Pantoprazole [Protonix Tab*] 40 mg PO DAILY #30 tab Rosuvastatin [Crestor*] 40 mg PO DAILY #30 tab Diet: [place] Activity: Ad anay Followup: Shiloh Arrington MD [ACTIVE - CAN ADMIT] - 1 Week Archie Gloria MD [OUTSIDE PHYSICIAN] -
== END 2018-09-08 13:12 | disposition home or self-care (01) ==
LOC: ER 16:28 → ERHOLD 19:58 → 4TH 21:34
PROVIDERS: ADMIT Hospitalist; ATTEND Hospitalist
DX: K86.1 Other chronic pancreatitis (principal); E11.9 Type 2 diabetes mellitus without complications; E78.1 Pure hyperglyceridemia; F17.210 Nicotine dependence, cigarettes, uncomplicated; K21.9 Gastro-esophageal reflux disease without esophagitis; I10 Essential (primary) hypertension; E66.9 Obesity, unspecified; Z68.31 Body mass index [BMI] 31.0-31.9, adult; G47.33 Obstructive sleep apnea (adult) (pediatric); Z91.041 Radiographic dye allergy status; Z88.0 Allergy status to penicillin
CPT/HCPCS: 36415; 71045; 74176; 80048; 80053; 80061; 80076; 81003; 82962; 83690; 83735; 83880; 84484; 85025; 85610; 87086; 87088; 93005; 96361; 96374; 96375; 99285; G0378; J1170; J2270; J2405; J7030